=== PATIENT | male | born 1940 | race Caucasian/White ===

== ENCOUNTER → 2016-09-15 | Outpatient (CLI) | payer OTHER, MEDICARE ==
[~2016-09-15] VITALS: Ht 190.5 cm; Wt 105.4 kg
[~2016-09-15] MED LIST: ADULT LOW DOSE81 MG PO; ALDACTONE25 MG PO; ASPIRIN EC81 M1 PO; ASTELIN30 ML; B-100 COMPLEX1 EAC1 PO; B-100 COMPLEX100 MG PO; BACTRIM DS TAB1 EACH PO; BISOPROLOL FUM2.5 MG PO; BLOOD PRESSURE MED; CALCIUM PO; CELEBREX 200 M200 MG PO; CENTRUM COMPLE1 EACH PO; CENTRUM TABLET1 EACH PO; CHEST CONGESTI400 MG PO; CITRUCEL CAPLET1 TA1 PO; CITRUCEL500 MG; COLACE100 MG PO; CYMBALTA30 MG PO; CYMBALTA60 MG PO; DICLOFENAC SODI50 MG PO; ENTEX; FENTANYL PA12 MCG/H1 TOP; FENTANYL PA12 MCG/H1 TP; FENTANYL PA12 MCG/HR TP; FINACEA50 GM TOP; FISH OIL 1,001000 M2 PO; GLUCOSAMINE HC500 MG PO; GLUCOSAMINE-CH1 EA33 PO; HYDROCHLOROTHIA25 M1 PO; HYDROCODON-ACE1 EAC5 PO; HYDROCODON-ACE1 EAC7 PO; HYDROCODONE-AP1 EAC6 PO; HYLANDS LEG CRAMPS; HYZAAR 50-12.51 EACH PO; KLOR-CON 1010 MEQ; KLOR-CON 1010 MEQ PO; LASIX 40 MG TAB40 M2 PO; LIORESAL 10 MG10 MG PO; LIPITOR 10 MG10 M1 PO; LISINOPRIL2.5 MG PO; LOPRESSOR25 PO; LOPRESSOR50 PO; MIRALAX255 GM; MUCINEX1200 MG PO; MUCUS RELIEF600 MG PO; NABUMETONE 500500 M1 PO; NITROGLYCERIN0.4 MG SUBLING; PACERONE 200 M200 M1 PO; PHOSLO; PLAVIX 75 MG TA75 M1 PO; PREVACID 30MG C30 M1 PO; PROBIOTIC1 EAC1 PO; QUININE PO; RELAFEN500 MG; SIMVASTATIN40 MG PO; TUMS PO; VITAMIN D1000 UNIT PO; VITAMIN D3400 UNIT PO; VOLTAREN50 MG PO; ZYRTEC PO; ZYRTEC1 MG/1 ML; ZYRTEC10 MG PO; [UNRECOGNIZED DRUG - OTHER]
--- NOTE | ~2016-09-15 | HPC ---
[facility] [address] [place] [address] PAIN MANAGEMENT CONSULTATION Name: ELÍAS DAVIS Room #: REG [facility].#: [id number] Admission: 09/15/16 Attend Phys: Elías Cruz DO Discharge: Date of : 40 Report #: [id number] THIS REPORT FOR: //name// CC: Sabine Cruz DATE OF SERVICE: 09/15/2016 DATE OF SERVICE: 09/15/2016 CHIEF COMPLAINT: Generalized arthritic pain, low back pain. HISTORY OF PRESENT ILLNESS: As you know, patient is a 76-year-old male with longstanding history of chronic back pain issues with multiple radiofrequency lesionings of the lumbar spine to address lumbar facet arthropathy. He is beginning to experience increasing back pain for which he believes his symptoms are due to facet arthropathy. He is also complaining of generalized joint pain today. There has been a recent change in weather, which I believe is contributing to his symptoms. I believe the patient is suffering from generalized osteoarthritic changes of the major joints due to injury sustained as a younger man and age-related issues. He returns today reporting pain score to 8/10. Requesting medication management and to be scheduled to undergo radiofrequency lesioning of the medial branch nerves once again to address axial back pain issues. He has received authorization to come off his Plavix for the 7 days required. ALLERGIES: ADHESIVE TAPES AND PENICILLIN. CURRENT MEDICATIONS: For pain, fentanyl, Cymbalta and hydrocodone. SOCIAL HISTORY: The patient denies tobacco, alcohol or illicit drug use. He is retired, retired years ago, accompanied by his . PHYSICAL EXAMINATION: VITAL SIGNS: Blood pressure 110/67, pulse is 71, respiratory rate 14 and unlabored. The patient 98% on room air, height 6 feet 3 inch tall, weight 232.4 pounds, BMI calculated 29. GENERAL: Well-developed, well-nourished, well-hydrated, thin, 76-year-old male appearing his stated age. Pain is rated at around 8/10. HEENT: Normocephalic, atraumatic. Pupils equal, round, reactive to light. EXTREMITIES: Show no clubbing, no cyanosis, no edema. MUSCULOSKELETAL: Lumbar provocation testing including extension, rotation, lateral flexion all intensify axial back pains. Seated straight leg raising negative. Supine straight leg raising negative. Fabere's test negative. ASSESSMENT: [facility] [address] [place] [address] PAIN MANAGEMENT CONSULTATION Name: ELÍAS DAVIS [facility] [id number] Admission: 09/15/16 Attend Phys: Elías Cruz DO Discharge: Date of : 40 Report #: [id number] 1. Severe and progressively worsening lumbosacral spondylosis without radiculopathy. 2. Myofascial pain. 3. Generalized osteoarthritis of the major joints. 4. Chronic intractable pain. PLAN: 1. The patient was returned today in followup visit indicating that he has been cleared to come off his anticoagulant medication in preparation for radiofrequency lesioning of the lumbar spine. I have advised the patient at this time, he would need to be off the Plavix minimum of 5 days and maximum of 7 days to undergo the procedure safely. He will contact his PCP to confirm that he can come off these medications. If he is able to do so, we will schedule him back next week for radiofrequency lesioning of the medial branch nerves either right or left side in this staged procedure. The patient would need to come off the medication at 2 different times to complete the radiofrequency lesioning of the medial branch nerves of the lumbar region. 2. The patient was provided prescription of fentanyl 12 mcg patch 1 patch q. 72 hours, given #10 patches releases of today, 4 weeks from today, 8 weeks from today, 3 months worth of medication. 3. The patient was provided a prescription of Cymbalta 30 mg dose 1 tab p.o. q.a.m., #30, two refills. 4. The patient was provided prescription of hydrocodone/acetaminophen 10/325 one tab per day p.r.n. pain, #30, no refills. 5. The patient to return to our clinic once he has discontinued his Plavix in preparation for radiofrequency lesioning of either the right L3, L4, L5 medial branch nerves over the left L3, L4, L5 medial branch nerves. This was the first portion of the staged bilateral procedure. <ELECTRONICALLY SIGNED> By: Elías Cruz DO 09/28/16 0805 0830 [id number] Elías Cruz DO /nt
[2016-09-15 10:33] VITALS: BP 110/67
== END | disposition home or self-care (01) ==
LOC: PAIN 07:12
DX: M47.817 Spondylosis without myelopathy or radiculopathy, lumbosacral region (principal); M79.1 Myalgia; M19.90 Unspecified osteoarthritis, unspecified site; G89.29 Other chronic pain

== ENCOUNTER → 2017-01-05 | Outpatient (CLI) | payer OTHER, MEDICARE ==
[~2017-01-05] VITALS: Ht 193 cm; Wt 104.4 kg
--- NOTE | ~2017-01-05 | HPC ---
[facility] [place] [address] PAIN MANAGEMENT CONSULTATION Name: ELÍAS DAVIS Room #: REG [facility]..#: [id number] Admission: 01/05/17 Attend Phys: Elías Cruz DO Discharge: Date of : 40 Report #: [id number] THIS REPORT FOR: //name// CC: Sabine Cruz DATE OF SERVICE: 01/05/2017 REFERRING PHYSICIAN: MELISSA Magallanes CHIEF COMPLAINT: Low back pain. HISTORY OF PRESENT ILLNESS: As you know, the patient is a very pleasant 76-year-old male, returning in followup visit for medication management. He is placing pain score today around 6/10, states his pain begins in low back, bilateral hips, its chronic in nature, stiff in sensation, exacerbated with activities and movement, improves with medications. He has returned today in followup visit, denying new injury or new trauma that may have led to continuation of symptoms. Overall, he is doing very well from a pain standpoint, requesting refills of the medications at current dosing. ALLERGIES: ADHESIVE TAPES and PENICILLIN. CURRENT MEDICATIONS: , hydrocodone 10/325 one 1 tab p.o. q. 12 hours p.r.n. for pain, fentanyl 12 mcg 1 patch q.72 hours, and duloxetine 30 mg 1 tab p.o. at bedtime. SOCIAL HISTORY: The patient denies tobacco, alcohol, IV or illicit drug use. He is unaccompanied today. IMAGING: No new imaging available. PHYSICAL EXAMINATION: VITAL SIGNS: Blood pressure 101/67, pulse 69, and respiratory rate 14 and unlabored, the patient is 96% on room air, height 6 feet 4 inches tall, weight 230.2 pounds, BMI calculated 28. GENERAL: Well-developed, well-nourished, well-hydrated 76-year-old male, appearing stated age, placing pain score today 6/10. HEENT: Normocephalic and atraumatic. Pupils are equal, round, and reactive to light. Extraocular muscles are intact. Sclerae are nonicteric without injection. EXTREMITIES: Show no clubbing, no cyanosis, and no edema. MUSCULOSKELETAL: Lower extremity strength appears equal and symmetrical 5/5. Seated straight leg raising negative. Supine straight leg raising negative. Lumbar provocation testing including extension, rotation, and lateral flexion [address] [address] PAIN MANAGEMENT CONSULTATION Name: ELÍAS DAVIS Room #: REG CLI [facility]#: [id number] Admission: 01/05/17 Attend Phys: Elías Cruz DO Discharge: Date of : 40 Report #: [id number] intensify axial back pain. ASSESSMENT: 1. Severe and progressively worsening lumbosacral spondylosis without radicular symptoms. 2. Myofascial pain. 3. Generalized joint pain. 4. Osteoarthritis of the joints. 5. Chronic intractable pain. PLAN: 1. The patient has returned today in followup visit, reporting 75% improvement in overall pain with the radiofrequency lesioning provided at last visit. Unfortunately, the patient continues to experience axial back pain for which he needs to remain on medications. Overall, the patient states his pain is doing much better than it was at our last visit. He places his pain at the highest at 6/10. He has returned requesting refill on medication. He denies any side effects with the therapy. He is pleased with the response to the radiofrequency lesioning and wishes to continue medication therapy at this time. 2. The patient was provided a prescription of fentanyl 12 mcg patch 1 patch q.72 hours, I have given the patient #10 patches, release dates of today, 4 weeks from today, 8 weeks from today, 3 months' worth of medication. 3. The patient was provided a refill prescription on hydrocodone 10/325 one tab every 8 hours p.r.n. for pain, #30, release dates of today, 4 weeks from today, 8 weeks from today, 3 months' worth of medication. 4. The patient was provided a prescription of Cymbalta 30 mg dose 1 tab p.o. q.a.m., #30, 2 refills, 3 months' worth of medication. 5. The patient will return to our clinic on an as needed basis for possible interventional treatments, otherwise we will see him back in followup visit for medication management 3 months from today. By: [id number] Elías Cruz, /nt
[2017-01-05 10:08] VITALS: BP 101/67
== END ==
LOC: PAIN 06:49
DX: M47.817 Spondylosis without myelopathy or radiculopathy, lumbosacral region (principal); M79.1 Myalgia; M19.90 Unspecified osteoarthritis, unspecified site; I10 Essential (primary) hypertension; F10.21 Alcohol dependence, in remission; Z88.0 Allergy status to penicillin; Z88.8 Allergy status to other drugs, medicaments and biological substances

== ENCOUNTER → 2017-03-16 | Outpatient (CLI) | payer OTHER, MEDICARE ==
[~2017-03-16] VITALS: Ht 190.5 cm; Wt 107.0 kg
[~2017-03-16] MED LIST changes: +APAP500 PO
--- NOTE | ~2017-03-16 | HPC ---
[facility] [address] [place] [address] PAIN MANAGEMENT CONSULTATION Name: ELÍAS DAVIS Room #: REG [facility].#: [id number] Admission: 03/16/17 Attend Phys: Elías Cruz DO Discharge: Date of : 40 Report #: [id number] THIS REPORT FOR: //name// CC: Sabine Cruz DATE OF SERVICE: 03/16/2017 CHIEF COMPLAINT: Low back pain. HISTORY OF PRESENT ILLNESS: As you know, the patient is a pleasant 76-year-old male who returns today in followup visit with pain score of around 8/10, states his pain begins in his low back, radiates to bilateral buttock and posterolateral thighs. He indicates his pain is chronic, stiff in sensation, exacerbated with activities and movement, improves with medications and intermittent medial branch radiofrequency lesioning of the lumbar medial branch nerves. The patient returns today in followup visit indicating no change in his current therapy. He states he is doing well overall. States medications are working beneficially despite the elevated pain score of 8/10. He reports a 60% improvement in symptoms with medication management. He returns today requesting refills of all medications. ALLERGIES: ADHESIVE TAPE, PENICILLIN. CURRENT MEDICATIONS: Hydrocodone 10/325 one tab every 12 hours p.r.n. for pain, fentanyl 12 mcg q. 72 hours, duloxetine 30 mg once a day, acetaminophen 500 mg p.r.n., guaifenesin 400 mg p.r.n., omega-3 fish oil 1 tab per day, cholecalciferol 1 tab per day, furosemide 40 mg per day, metoprolol 25 mg once a day, lisinopril 2.5 mg once a day, nitroglycerin 0.4 mg p.r.n., simvastatin 40 mg per day, Plavix 75 mg per day, lactobacillus 1 tab per day, aspirin 81 mg per day, potassium chloride 10 mEq p.o. q. day, lansoprazole 30 mg per day. SOCIAL HISTORY: The patient denies tobacco, alcohol, IV or illicit drug use. He is accompanied by his who is present in room today. IMAGING: No new imaging available. PHYSICAL EXAMINATION: VITAL SIGNS: Blood pressure 110/65, pulse 66, respiratory rate 16, unlabored. The patient is 97% on room air, height 6 feet 3 inches tall, weight 236 pounds, BMI calculated 29.5. GENERAL: Well developed, well nourished, well hydrated, thin, 76-year-old male appearing stated age, placing current pain score at 8/10. HEENT: Normocephalic, atraumatic. Pupils equal, round, [place] [address] PAIN MANAGEMENT CONSULTATION Name: ELÍAS DAVIS [facility] #: [facility] [id number] Admission: 03/16/17 Attend Phys: Elías Cruz DO Discharge: Date of : 40 Report #: [id number] EXTREMITIES: Show no clubbing, no cyanosis, no edema. MUSCULOSKELETAL: Lower extremity strength equal and symmetrical 5/5, intact to light touch from L1 through S2 dermatomes. Deep tendon reflexes equal and symmetrical. Ankle clonus negative. Babinski is negative. Modified Gaenslen's positive for axial low back pain. ASSESSMENT: 1. Severe and progressively worsening lumbosacral spondylosis. There is no radiculopathy. 2. Myofascial pain. 3. Generalized joint pain. 4. Osteoarthritis of the joints. 5. Chronic intractable pain. PLAN: 1. The patient has returned today in followup visit for continuation of medication therapy. The patient states medications are working beneficially for pain control. The patient indicates pain today of a level of 8/10 despite the fact that he is reporting 60% improvement with medications. He has requested and we have agreed to provide refill of medications for the next 3 months. He is tolerating the medication well and does feel benefit with its use. 2. The patient was provided a prescription of Cymbalta 30 mg dose 1 tab p.o. at bedtime, #30, 2 refills. 3. The patient was provided a refill prescription of fentanyl 12 mcg patch 1 patch q. 72 hours, given the patient #10 patches, releases of today, 4 weeks from today, 8 weeks from today, 3 months' worth of medication. 4. The patient was provided a prescription of hydrocodone/acetaminophen 10/325 mg 1 tab p.o. q. 8 hours p.r.n. for pain, I have given the patient #30. He can take these tabs as necessary. He was given releases of today, 4 weeks from today, 8 weeks from today, 3 months' worth of medication. 5. We will see the patient back in followup visit on an as needed basis for possible interventional treatments; otherwise, we will see him back in 3 months for medication management. <ELECTRONICALLY SIGNED> By: Elías Cruz DO 03/19/17 1400 [id number] [id number] Elías Cruz DO /nt
[2017-03-16 10:59] VITALS: BP 110/65
== END | disposition home or self-care (01) ==
LOC: PAIN 07:06
DX: M47.817 Spondylosis without myelopathy or radiculopathy, lumbosacral region (principal); M79.1 Myalgia; M19.91 Primary osteoarthritis, unspecified site; G89.29 Other chronic pain

== ENCOUNTER → 2017-04-13 | Outpatient (CLI) | payer OTHER, MEDICARE ==
[~2017-04-13] VITALS: Ht 190.5 cm; Wt 106.1 kg
--- NOTE | ~2017-04-13 | HPC ---
[facility] [place] [address] [address] PAIN MANAGEMENT CONSULTATION Name: ELÍAS DAVIS Room #: REG [facility].#: [id number] Admission: 04/13/17 Attend Phys: Elías Cruz DO Discharge: Date of : 40 Report #: [id number] THIS REPORT FOR: //name// CC: Sabine Cruz DATE OF SERVICE: 04/13/2017 DATE OF SERVICE: 04/13/2017. REFERRING PHYSICIAN: MELISSA Magallanes. CHIEF COMPLAINT: Low back pain, bilateral lower extremity pain with weakness. HISTORY OF PRESENT ILLNESS: As you know, the patient is a 76-year-old male who returns today in followup visit with increasing back pain, bilateral lower extremity weakness. He indicates pain level 7/10. Pain is electrical in sensation radiating down the legs, exacerbated with movement, improves with medications and chiropractic manipulation. The patient returns today in followup visit to discuss options for treatment. He is now reporting bilateral weakness that has led to stumbling, but no specific falls. He returns to discuss options for treatment. ALLERGIES: ADHESIVE TAPE AND PENICILLIN. CURRENT MEDICATIONS: See extensive list in chart. SOCIAL HISTORY: The patient denies tobacco, alcohol, IV or illicit drug use. He is retired. He is accompanied by his in the room today. IMAGING: No new imaging available. PHYSICAL EXAMINATION: VITAL SIGNS: Blood pressure 116/70, pulse 66, respiratory rate 16, unlabored. The patient is 96% on room air, height 6 feet 3 inches tall, weight 234 pounds, BMI calculated 29.2. GENERAL: Well developed, well nourished, well hydrated, thin, 76-year-old male appearing his stated age, placing current pain score 7/10. HEENT: Normocephalic, atraumatic. Pupils equal, round, reactive to light. Extraocular muscles are intact. EXTREMITIES: Show no clubbing, no cyanosis, no edema. MUSCULOSKELETAL: Lower extremity strength is symmetrical and would be rated at 5/5. He is intact to light touch from L1 through S2 dermatomes. Deep tendon reflexes are symmetrical at patella and Achilles, but are diminished. Ankle clonus negative. Babinski is negative. Gait is antalg[place] [address] PAIN MANAGEMENT CONSULTATION Name: ELÍAS DAVIS Room #: REG [facility]#: [id number] Admission: 04/13/17 Attend Phys: Elías Cruz DO Discharge: Date of : 40 Report #: [id number] lumbar spine while standing. ASSESSMENT: 1. Severe and progressively worsening lumbosacral spondylosis with radiculopathy. 2. Lumbar radiculopathy. 3. Generalized joint pain. 4. Osteoarthritis. 5. Chronic intractable pain. PLAN: 1. The patient has returned today in followup visit indicating increasing weakness in the lower extremities. He has a begun to stumble but he is not falling. He believes that this weakness has progressed. The patient indicates that many times in the day, he has to lift his leg by his pant leg, both on the right and left side. The patient returns with increasing pain and weakness in the lower extremities, which is concerning for central canal stenosis. The patient and I did discuss today that further evaluation will be necessary to determine course of treatment. He has undergone radiofrequency lesioning, epidural injections, medication management, all of which have been somewhat helpful in alleviating symptoms on progressive basis, but with increasing weakness, I am concerned of central canal stenosis that may need surgical intervention. We recommend MRI lumbar spine. 2. The patient will undergo MRI of lumbar spine without contrast to be sent for the MRI as quickly as possible, review the findings once they are available and discuss the options for treatment including surgical options. 3. No medication changes were made at today's visit. The patient has medication available, does not need refills on his therapy at this time. 4. We will see the patient back in followup visit once he has undergone his MRI of the lumbar spine. Once this is completed, the patient will return and will review the findings and discuss options for treatment. By: [id number] Elías Cruz DO /nt
[2017-04-13 10:06] VITALS: BP 116/70
== END | disposition home or self-care (01) ==
LOC: PAIN 07:16
DX: M54.16 Radiculopathy, lumbar region (principal); M47.27 Other spondylosis with radiculopathy, lumbosacral region; M19.90 Unspecified osteoarthritis, unspecified site; G89.29 Other chronic pain; Z88.0 Allergy status to penicillin; Z88.8 Allergy status to other drugs, medicaments and biological substances

== ENCOUNTER → 2017-04-15 | Outpatient (CLI) | payer OTHER, MEDICARE | LOC: MRI 08:08 | DX: M54.5 Low back pain (principal) ==

== ENCOUNTER → 2017-04-20 | Outpatient (CLI) | payer OTHER, MEDICARE ==
[~2017-04-20] VITALS: Ht 190.5 cm; Wt 107.3 kg
--- NOTE | ~2017-04-20 | HPC ---
[facility] [place] [address] PAIN MANAGEMENT CONSULTATION Name: ELÍAS DAVIS [facility] [id number] Admission: 04/20/17 Attend Phys: Elías Cruz DO Discharge: Date of : 40 Report #: [id number] THIS REPORT FOR: //name// CC: Sabine Cruz DATE OF SERVICE: 04/20/2017 REFERRING PHYSICIAN: MELISSA Magallanes. CHIEF COMPLAINT: Low back pain, bilateral lower extremity pain and weakness. HISTORY OF PRESENT ILLNESS: As you know, the patient is a 76-year-old male who returns today in followup visit who was reporting last week increasing back pain, bilateral lower extremity pain and weakness. At that time, he was placing pain score 7/10. Due to increasing back pain issues and weakness, the patient was sent for MRI. He returns today to review MRI and has stopped his Plavix in preparation for an epidural injection. He returns today stating the weakness has resolved from his lower extremities. He is now experiencing axial back pain, buttock and posterolateral thigh pain. He returns to discuss options for treatment. He has stopped his Plavix in preparation for an epidural injection if this is appropriate. ALLERGIES: TAPE AND PENICILLIN. CURRENT MEDICATIONS: See extensive list in chart. SOCIAL HISTORY: The patient denies tobacco, alcohol, IV or illicit drug use. He is retired, retired years ago, accompanied by his . IMAGING: MRI lumbar spine obtained on 04/15/2017 shows development of mild bulge at L1-L2 associated with moderate Schmorl's node involving inferior endplate of L1 which was not present in the previous examination, extensive surgical changes with disk bulge and mild subluxations do not appear changed from previous evaluations. PHYSICAL EXAMINATION: VITAL SIGNS: Blood pressure 113/65, pulse 68, respiratory rate 14, unlabored. The patient is 96% on room air. Height 6 feet 3 inches tall, weight 236.6 pounds, BMI calculated 29.6. GENERAL: Well developed, well nourished, well-hydrated 76-year-old male appearing stated age. Pain is rated at 7/10. HEENT: Normocephalic, atraumatic. Pupils equal, round, reactive to light. EXTREMITIES: Show no clubbing, no cyanosis and no edema. MUSCULOSKELETAL: Seated straight leg raising negative. Supine straight leg [facility] [address] [place] [address] PAIN MANAGEMENT CONSULTATION Name: ELÍAS DAVIS [facility] [id number] Admission: 04/20/17 Attend Phys: Elías Cruz DO Discharge: Date of : 40 Report #: [id number] raising positive. Kathy's test negative. Modified Gaenslen's positive for axial low back pain. ASSESSMENT: 1. Lumbar radiculopathy. 2. Severe and progressively worsening lumbosacral spondylosis with radicular symptoms. 3. Lumbar degeneration. 4. Opioid dependency. 5. Osteoarthritis. 6. Chronic intractable pain. PLAN: 1. The patient returns today in followup visit where we have reviewed his MRI. I am pleased to tell the patient today that there are no major changes in his lumbar region. He appears to be fairly stable except for the Schmorl's node noted at L1, but this is not the source of the patient's pain. The patient and I discussed the possibility of exacerbation of symptoms that were more myofascial in origin. This does appear to be the case as the "weakness." The patient was experiencing in lower extremities has resolved. We did not notice any physical weakness, it appears to be more of a perceived weakness at our last visit. I am pleased to indicate this has improved as well. The patient has returned today in followup visit with continued lumbar radicular symptoms, he is requesting an epidural injection to be performed today. The patient was advised risks and benefits of a lumbar epidural injection. These risks include but are not necessarily limited to bleeding, bruising, infection, worsening pain, no relief of pain, also risk of temporary or permanent muscle weakness, temporary or permanent nerve damage, possible paralysis and . The patient states understood and wished to proceed. 2. The patient was provided no change to his medication therapy. He is to continue current medical therapy as previously prescribed. 3. The patient to return to our clinic on an as-needed basis for next in a series of epidural injections and discuss other treatment options. <ELECTRONICALLY SIGNED> By: Elías Cruz DO 04/27/17 0714 1359 1822 Elías Cruz DO /nt
--- NOTE | ~2017-04-20 | P ---
[facility] [place] [address] PROCEDURE REPORT Name: ELÍAS DAVIS Room #: REG [facility].#: [id number] Admission: 04/20/17 Attend Phys: Elías Cruz DO Discharge: Date of : 40 Report #: [id number] THIS REPORT FOR: //name// CC: Sabine Cruz DATE OF SERVICE: 04/20/2017 DESCRIPTION OF PROCEDURE: L5-S1 interlaminar epidural steroid injection under fluoroscopic guidance. After obtaining written consent, the patient was taken back to fluoroscopy suite, placed in prone position with pillow under abdomen to decrease lumbar lordosis. Skin overlying lumbosacral area prepped and draped in aseptic fashion. Lumbar intervertebral spaces were identified by AP fluoroscopy. Skin and subcutaneous tissue overlying the target site of injection was anesthetized with 3 mL of 1% lidocaine. A 20-gauge 3-1/2 inch Tuohy needle advanced under fluoroscopic guidance towards the epidural space using a midline approach. Epidural space identified using loss of resistance to air technique. After negative aspiration for heme or cerebrospinal fluid, 1 mL of Omnipaque was injected. Lumbar epidurogram was confirmed using both AP and lateral fluoroscopy. After negative aspiration for heme or cerebrospinal fluid, 5 mL of a solution containing 2 mL 40 mg per mL, 80 mg total triamcinolone, 3 mL lidocaine 1% injected slowly. Needle retracted senior care, needle tract flushed 3 mL 1% lidocaine. Needle then removed. Sterile bandage placed over injection site. No new motor deficits present in lower extremity following the procedure. The patient tolerated procedure well, carefully escorted to the recovery in stable condition. No apparent complications. After meeting discharge criteria, the patient discharged home. <ELECTRONICALLY SIGNED> By: Elías Cruz DO 04/27/17 0714 1359 1823 Elías Cruz DO /nt
[2017-04-20 09:15] VITALS: BP 113/65
== END ==
LOC: PAIN 07:08
DX: M47.26 Other spondylosis with radiculopathy, lumbar region (principal); F11.20 Opioid dependence, uncomplicated; M19.90 Unspecified osteoarthritis, unspecified site; G89.29 Other chronic pain; Z88.0 Allergy status to penicillin; Z79.899 Other long term (current) drug therapy; Z91.09 Other allergy status, other than to drugs and biological substances

== ENCOUNTER → 2017-09-14 | Outpatient (CLI) | payer OTHER, MEDICARE ==
[~2017-09-14] VITALS: Ht 190.5 cm; Wt 108.8 kg
[~2017-09-14] MED LIST changes: +DIGOXIN125 MCG PO; +DURAGESIC1 EACH TRANSDERM
--- NOTE | ~2017-09-14 | HPC ---
[facility] [address] [place] [address] PAIN MANAGEMENT CONSULTATION Name: ELÍAS DAVIS Room #: REG [facility] M..#: [id number] Admission: 09/14/17 Attend Phys: Elías Cruz DO Discharge: Date of : 40 Report #: [id number] THIS REPORT FOR: //name// CC: Sabine Cruz DATE OF SERVICE: 09/14/2017 CHIEF COMPLAINT: Low back pain, bilateral extremity pain and paresthesias. HISTORY OF PRESENT ILLNESS: As you know, the patient is a 77-year-old male with longstanding history of low back pain for which he has been treated with radiofrequency lesioning and medication management to address axial back pain issues. The patient continues to experience increasing back pain, lower extremity weakness, which is believed to be due to progressively worsening spinal stenosis. He returns today in followup visit requesting refill on medications. He states medications are working beneficially despite the fact that he is giving in 8/10 pain score today. He states his pain is chronic in nature, sore and aching in sensation and develops low back, bilateral buttock radiating all the way down to the feet. He returns today in followup visit stating no changes in medical history since our last visit. No injury, no trauma that led to progression of pain. ALLERGIES: TAPE AND PENICILLIN. CURRENT MEDICATIONS: Duloxetine 30 mg once a day, hydrocodone/acetaminophen 10/325 one tab p.o. every day, fentanyl 12 mcg q.72 hours, docusate sodium 100 mg twice a day, calcium carbonate 500 mg once a day, guaifenesin 400 mg once a day, omega-3 fish oil 1 tab per day, furosemide 40 mg per day, metoprolol 25 mg once a day, lisinopril 2.5 mg once a day, nitroglycerin 0.4 mg p.r.n., simvastatin 40 mg per day, Plavix 75 mg once a day, lactobacillus 1 tab per day, aspirin 81 mg per day, potassium chloride 10 mEq p.o. every day, Prevacid 30 mg per day. SOCIAL HISTORY: The patient denies tobacco, alcohol, IV or illicit drug use. He is retired, retired years ago, accompanied by his who is present in room today. IMAGING: No new imaging available. History of osteoarthritis, positive for osteoarthritis. Fall risk: The patient is not deemed a fall risk. If he needs, he can utilize [place] [address] PAIN MANAGEMENT CONSULTATION Name: ELÍAS DAVIS Room #: REG [facility]#: [id number] Admission: 09/14/17 Attend Phys: Elías Cruz DO Discharge: Date of : 40 Report #: [id number] History of hypertension: Yes. Opioid therapy greater than 6-week: Yes with opioid contract signed 03/25/2016. Opioid risk tool low, 08/25. Functional assessment tool 40/70. PHYSICAL EXAMINATION: VITAL SIGNS: Blood pressure 118/64, pulse 70, respiratory rate 14, unlabored. The patient 99% on room air, height 6 feet 3 inch tall, weight 239.8 pounds, BMI calculated 30. GENERAL: Well-developed, well-nourished, well-hydrated 77-year-old male. He appears his stated age. He is placing current pain score at 8/10. HEENT: Normocephalic, atraumatic. Pupils equal, round, reactive to light. Extraocular muscles are intact. EXTREMITIES: Show no clubbing, no cyanosis, no edema. MUSCULOSKELETAL: Seated straight leg raising negative. Supine straight leg raising mildly positive bilaterally. Kathy's test negative. Modified Gaenslen's positive for axial low back pain. Ankle clonus negative. Babinski is negative. He is intact to light touch from L1 through S2 dermatomes. ASSESSMENT: 1. Chronic lumbar radiculopathy. 2. Lumbosacral spondylosis with radiculopathy. 3. Lumbar degeneration. 4. Opioid dependency. 5. Osteoarthritis. 6. Chronic intractable pain. PLAN: 1. The patient returns today in followup visit where we have discussed the efficacy of medication. The patient states good efficacy with therapy despite the fact he is providing an 8/10 pain level today. I recommend continuation of the current pain medications and at current levels as the patient does note good benefit. He is able to go about his activities of daily living without significant pain interference. At present, I do not feel the patient is in need for further evaluation from Neurosurgery though he ultimately may need to have a surgical intervention. At this point, I would recommend continuation of conservative treatment as he is tolerating the medication without side effects. 2. The patient was provided prescription of fentanyl 12 mcg patch 1 patch q.72 hours, given the patient #10 patches, releases of today, 4 weeks from today, 8 weeks from today, 3 months' worth of medication. 3. The patient was provided a prescription of [place] 10/325, 1 tab per day, #30 with releases of today, 4 weeks from today, 8 weeks from today. 4. We will continue the patient on Cymbalta 30 mg dose, 1 tab p.o. every day, #30, 2 refills. 5. The patient and I did discuss the possibility of making alteration in his [facility] [address] [place] [address] PAIN MANAGEMENT CONSULTATION Name: ELÍAS DAVIS Room #: REG [facility] Bernadine#: [id number] Admission: 09/14/17 Attend Phys: Elías Cruz DO Discharge: Date of : 40 Report #: [id number] medication for better pain control. During the daytime hours, he has hydrocodone 5/325 available to him and has a significant amount at home. He could utilize this for pain control. We did discuss the possibility of starting the patient on nonsteroidal anti-inflammatories per his request, but I did advise him that these are contraindicated with the use of Plavix. There is a strong possibility that the patient could have increased bleeding risk with the Plavix concurrent with nonsteroidal anti-inflammatories. Recommend the use of the hydrocodone as tramadol has been ineffective. He does not need a refill on that and had hydrocodone at the 5/325 level. 6. We will see the patient back in followup visit in 3 months for medical therapy earlier if adjustments need to be addressed. <ELECTRONICALLY SIGNED> By: Elías Cruz DO 09/22/17 [id number] Elías Cruz DO /nt
[2017-09-14 11:18] VITALS: BP 118/64
== END ==
LOC: PAIN 06:54
DX: M47.27 Other spondylosis with radiculopathy, lumbosacral region (principal); F11.20 Opioid dependence, uncomplicated; M19.90 Unspecified osteoarthritis, unspecified site; Z88.0 Allergy status to penicillin

== ENCOUNTER → 2017-12-28 | Outpatient (CLI) | payer OTHER, MEDICARE ==
[~2017-12-28] VITALS: Ht 190.5 cm; Wt 107.0 kg
[~2017-12-28] MED LIST changes: -DIGOXIN125 MCG PO
--- NOTE | ~2017-12-28 | HPC ---
[facility] [place] [address] PAIN MANAGEMENT CONSULTATION Name: ELÍAS DAVIS Room #: REG [facility].#: [id number] Admission: 12/28/17 Attend Phys: Elías Cruz DO Discharge: Date of : 40 Report #: [id number] THIS REPORT FOR: //name// CC: MARIBELL Cruz DATE OF SERVICE: 12/28/2017 CHIEF COMPLAINT: Low back pain, bilateral lower extremity pain with paresthesias. HISTORY OF PRESENT ILLNESS: As you know, the patient is a 77-year-old male with longstanding history of low back pain for which he is treated with radiofrequency lesioning, medication management to address axial back pain. He continues to experience axial back pain, which he rates pain today at 7/10. He returns today requesting refill on medications. He feels medications are working beneficially despite this elevated pain level. He remains on Plavix, which precludes us from continuing nonsteroidal anti-inflammatories for which he found the greatest efficacy. He returns citing no new injury, no new trauma or any changes in medical history since our last visit. ALLERGIES: TAPE AND PENICILLIN. CURRENT MEDICATIONS: Duloxetine 30 mg once a day, hydrocodone/acetaminophen 10/325 one tab p.o. at bedtime, fentanyl 12 mcg q. 72 hours, docusate sodium 100 mg once a day, calcium carbonate 500 mg per day, guaifenesin 400 mg once a day, omega-3 fish oil 1 tab per day, cholecalciferol 4000 units once a day, furosemide 40 mg per day, metoprolol 25 mg once a day, lisinopril 2.5 mg once a day, nitroglycerin 0.4 mg p.r.n. chest pain, simvastatin 40 mg once a day, Plavix 75 mg once a day, Lactobacillus 1 tab per day, aspirin 81 mg per day, potassium chloride 10 mEq p.o. q. day, lansoprazole 30 mg per day. SOCIAL HISTORY: The patient denies tobacco, alcohol, IV or illicit drug use. He is retired, retired years ago. He is unaccompanied today. IMAGING: No new imaging available. PQRS, the patient has known osteoarthritis. No rheumatoid arthritis. He is not a fall risk, has not had a fall in the last 3 months. He does not have any ambulatory devices. He is currently treated for hypertension and is on an anticoagulant. He has been on opioids greater than 6 weeks and is under contract with [facility]. His risk assessment for opioid abuse is low. Functional assessment/pain tool 42/70 indicating moderate to severe interference of daily activities secondary to pain. [address] [address] PAIN MANAGEMENT CONSULTATION Name: ELÍAS DAVIS Room #: REG [facility]#: [id number] Admission: 12/28/17 Attend Phys: Elías Cruz DO Discharge: Date of : 40 Report #: [id number] PHYSICAL EXAMINATION: VITAL SIGNS: Blood pressure 117/70, pulse 70, respiratory rate 14, unlabored. The patient is 96% on room air, height 6 feet 3 inch tall, weight 236 pounds, BMI calculated at 29.5. GENERAL: Well-developed, well-nourished, well-hydrated 77-year-old male appearing stated age, placing pain score today at 7/10. HEENT: Normocephalic, atraumatic. Pupils equal, round, reactive to light. Extraocular muscles are intact. EXTREMITIES: Show no clubbing, no cyanosis, no edema. MUSCULOSKELETAL: Muscle bulk and tone equal and symmetrical in lower extremities. He remains intact to light touch from L1 through S2 dermatomes. Seated straight leg raising negative. Supine straight leg raising mildly positive. KYLE test negative. Modified Gaenslen's positive for axial low back pain. Lumbar provocation testing including extension, rotation, lateral flexion all intensify axial back pain. ASSESSMENT: 1. Symptomatic lumbar radiculopathy. 2. Lumbosacral spondylosis with radicular symptoms. 3. Lumbar degeneration. 4. Opioid dependency. 5. Osteoarthritis. 6. Chronic intractable pain. PLAN: 1. The patient returns today in followup visit. We have discussed at length his elevated pain score. He is now placing pain score at 7/10. This is not atypical for this patient as his pain does intensify with activities. He returns to discuss possible changes in medication therapy. We have suggested possibly increase in his fentanyl, but a decrease in his use of hydrocodone At this point, the patient does not feel he wishes to change. He wishes to continue the therapy at this point and trial conservative treatment options at home including stretching exercises and traction like techniques. We applaud the patient for trying more conservative approach, but will be available if adjustments need to be made. He has requested refills of medication at current dosing for the next 3 months. 2. The patient was provided a prescription of fentanyl 12 mcg patch 1 patch q. 72 hours. We have given the patient #10 patches. He will have releases of today, 4 weeks from today, 8 weeks from today, 3 months' worth of medication. 3. The patient was provided prescription of [place] 10/325 one tablet p.o. at bedtime, #30 releases of today, 4 weeks from today, 8 weeks from today. This is to be used specifically for breakthrough pain, is not to rely on prophylactically. 4. The patient was provided prescription of Cymbalta 30 mg dose 1 tab p.o. q.a.m., #32 refills. This has been added for depression and to help with axial [facility] [address] [place] [address] PAIN MANAGEMENT CONSULTATION Name: ELÍAS DAVIS Room #: REG [facility]#: [id number] Admission: 12/28/17 Attend Phys: Elías Cruz DO Discharge: Date of : 40 Report #: [id number] back pain and neuropathic pain. 5. The patient will return to our clinic in 3 months. At that time, we will discuss medications again and discuss if any other changes need to be made. By: 1601 2036 Elías Cruz DO /nt
[2017-12-28 11:54] VITALS: BP 117/70
== END ==
LOC: PAIN 06:19
DX: M47.27 Other spondylosis with radiculopathy, lumbosacral region (principal); M19.90 Unspecified osteoarthritis, unspecified site; F11.20 Opioid dependence, uncomplicated

== ENCOUNTER → 2018-03-09 | Outpatient (CLI) | payer OTHER, MEDICARE ==
[~2018-03-09] VITALS: Ht 190.5 cm; Wt 108.0 kg
[~2018-03-09] MED LIST changes: +DIGOXIN125 MCG PO
--- NOTE | ~2018-03-09 | HPC ---
[facility] [address] [place] [address] PAIN MANAGEMENT CONSULTATION Name: ELÍAS DAVIS Room #: REG [facility].#: [id number] Admission: 03/09/18 Attend Phys: Elías Cruz DO Discharge: Date of : 40 Report #: [id number] THIS REPORT FOR: //name// CC: MARIBELL Cruz DATE OF SERVICE: 03/09/2018 CHIEF COMPLAINT: Low back pain, bilateral lower extremity pain with paresthesias. HISTORY OF PRESENT ILLNESS: As you know, the patient is a 77-year-old male with longstanding history of low back pain, which has been treated with radiofrequency lesioning, medication management to address axial back pain issues due to facet arthropathy. He continues to experience back pain that now is radiating down the legs described as progressively worsening spinal stenosis. He returns today in followup visit reporting pain score 7/10, states his pain begins in low back, radiates down the legs all the way to the feet. He describes the pain as chronic aching, numbness and tingling. Places current pain score at 7/10. Pain is exacerbated with activity, lying down and sleeping, improves with medications and intermittent injections. He returns today in followup visit for medication management describing no side effects. ALLERGIES: TAPE, PENICILLIN. CURRENT MEDICATIONS: Duloxetine 30 mg once a day, hydrocodone 10/325 one tab every day, fentanyl 12 mcg q. 72 hours, docusate sodium 100 mg twice a day, calcium carbonate 500 mg once a day, guaifenesin 400 mg once a day, omega-3 fish oil 1 tab per day, furosemide 40 mg per day, metoprolol 25 mg per day, lisinopril 2.5 mg once a day, nitroglycerin 0.4 mg p.r.n., simvastatin 40 mg per day, Plavix 75 mg per day, Lactobacillus 1 tab per day, aspirin 81 mg per day, potassium chloride 10 mEq p.o. every day, Prevacid 30 mg per day. SOCIAL HISTORY: The patient denies tobacco, alcohol, IV or illicit drug use. He is retired, retired years ago. He is unaccompanied today. IMAGING: No new imaging available. PQRS: The patient has osteoarthritis of the back, neck, bilateral hips, bilateral knees. He is not diagnosed with rheumatoid arthritis. He is not a fall risk, has not had a fall in the last 3 months. He is treated for hypertension and is on blood thinners. He has been on opioids for greater than 6 weeks. He is low risk for opioid dependency. His functional assessment pain [address] [address] PAIN MANAGEMENT CONSULTATION Name: ELÍAS DAVIS [id number] Admission: 03/09/18 Attend Phys: Elías Cruz DO Discharge: Date of : 40 Report #: [id number] impact score 42/70, severe. PHYSICAL EXAMINATION: VITAL SIGNS: Blood pressure 121/77, pulse 70, respiratory rate 14 and unlabored. The patient is 97% on room air. Height 6 feet 3 inches tall, weight 238 pounds, BMI calculated at 29.7. GENERAL: Well-developed, well-nourished, well-hydrated 77-year-old male appearing stated age, placing current pain score at approximately 7/10. HEENT: Normocephalic, atraumatic. Pupils equal, round, reactive to light. EXTREMITIES: Show no clubbing, no cyanosis, no edema. MUSCULOSKELETAL: Lower extremity strength symmetrical 5/5, intact to light touch from L1 through S2 dermatomes. Seated straight leg raising negative. Supine straight leg raising positive. Kathy's test negative. Modified Gaenslen's positive for axial back pain. Ankle clonus negative. ASSESSMENT: 1. Chronic lumbar radiculopathy. 2. Lumbosacral spondylosis with radicular symptoms. 3. Lumbar degeneration. 4. Opioid dependency. 5. Complex medical therapy utilizing scheduled medications. 6. Osteoarthritis. 7. Chronic intractable pain. PLAN: 1. We reviewed the fact that opiate medications are being used to provide analgesia adequate to support activities of daily living, not attempting to achieve a specific pain score on the 0-10 Visual Analog Scale. The current opiate medications are providing sufficient analgesia to allow the patient to participate in activities of daily living. The patient is not exhibiting any aberrant behavior suggestive of drug diversion. The patient is not having any adverse reactions to medications. The patient is not suffering from daytime somnolence or mental acuity changes. The patient is managing opiate-induced constipation with appropriate [id number] agents and dietary considerations. The patient was counseled on concern for caution with operating a motor vehicle while using opiate medications. A physical exam was performed and the patient's functional status was evaluated. All patients with back pain were advised against the bed rest greater than 4 days and were advised to return to normal activities. Pain score assessment was noted and the treatment plan was reviewed with the patient. All current medications, both prescribed and OTC were reviewed and reconciled on the electronic medical record. Tobacco screening was accomplished and smoking cessation was advised when indicated. BMI was noted and diet/exercise modification was recommended for all patients following outside normal parameters. I reviewed with the patient today their responsibilities to safeguard [address] [place] [address] PAIN MANAGEMENT CONSULTATION Name: ELÍAS DAVIS Room #: REG [facility].#: [id number] Admission: 03/09/18 Attend Phys: Elías Cruz DO Discharge: Date of : 40 Report #: [id number] prescription medications, reviewed their responsibility to utilize medications only as prescribed by the physician. They are to seek and receive pain medications only from 1 physician group ( [facility]). They are to use 1 pharmacy and keep the clinic informed if they change pharmacies. Their responsibilities include making followup visits in a timely fashion and to avoid abrupt discontinuation of medication usage. Their responsibilities further include bringing their medications (bottles from the pharmacy with residual pills) to the visit for possible confirmation of pill counts and the patient understands it is their responsibility to submit to random drug screens to ensure both that the medications prescribed are present, and that no other controlled substances are present. All prescriptions provided today were generated electronically. 2. The patient returns today in followup visit for medication management, feels medications are working beneficially for pain control. He requests refills of his hydrocodone, fentanyl and Cymbalta. The following prescriptions were provided. The patient with refills for 3 months. 3. The patient was provided prescription of Cymbalta 30 mg dose 1 tab p.o. every day, #30, 2 refills. The patient denies side effects with medication. Recommend continuing this therapy. 4. The patient was provided prescription of fentanyl 12 mcg patch 1 patch q. 72 hours, #10 releases of today, 4 weeks from today, 8 weeks from today, 3 months' worth of medication. 6. The patient was provided prescription of [place] 10/325 1 tab p.o. b.i.d. p.r.n. #30, releases of today, 4 weeks from today, 8 weeks from today. 7. The patient was provided a prescription of [place] 5/325 one tab p.o. q. 8 hours p.r.n. for pain, #90 with no refills. The patient was advised to utilize the hydrocodone 5/325 only when pain is intolerable during the daytime hours. 8. We will see the patient back in followup visit in 3 months for medication therapy, earlier for adjustments in treatment options or interventional treatments. By: [id number] Elías Cruz DO /nt
[2018-03-09 11:03] VITALS: BP 121/77
== END ==
LOC: PAIN 06:09
DX: M47.27 Other spondylosis with radiculopathy, lumbosacral region (principal); M51.16 Intervertebral disc disorders with radiculopathy, lumbar region; G89.4 Chronic pain syndrome; F11.20 Opioid dependence, uncomplicated; Z79.899 Other long term (current) drug therapy

== ENCOUNTER → 2018-07-06 | Outpatient (CLI) | payer OTHER, MEDICARE ==
[~2018-07-06] MED LIST changes: +ELIQUIS5 MG PO
--- NOTE | ~2018-07-06 | HPC ---
[facility] [place] [address] PAIN MANAGEMENT CONSULTATION Name: ELÍAS DAVIS [id number] Admission: 07/06/18 Attend Phys: Emerita Cordero Discharge: Date of : 40 Report #: [id number] THIS REPORT FOR: //name// CC: Emerita TORRES DATE OF SERVICE: 07/06/2018 CHIEF COMPLAINT: Low back pain via lateral lower extremity pain with paresthesias. HISTORY OF PRESENT ILLNESS: This is a 78-year-old gentleman who has a longstanding history of low back pain with radicular symptoms. He has been treated with numerous injections, but continues to have pain in his lower back that is managed with his prescriptions of fentanyl 12 mcg patches and hydrocodone. The patient tells me today, his pain is 6/10, mostly over his low back, buttocks and hips. He tells me it is worse when he is standing, doing activity or lying down when he is asleep. The medications are very helpful. He tells me he does not have any problems with constipation or daytime sleepiness. He does manage his constipation with some medicines [id number]. The patient tells me that he was unable to fill a prescription by Dr. Elías Cruz last month for hydrocodone 5 mg tablets because the pharmacist would not fill to short acting medications. The patient still has that prescription in his possession at this visit. He returns today for followup of his other medicines. ALLERGIES: TAPE AND PENICILLIN. CURRENT LIST OF MEDICATIONS: Amiodarone 200 mg daily, Eliquis 5 mg twice a day, hydrocodone 10/325 once a day, fentanyl patch 12 mcg every 72 hours, Cymbalta 30 mg once a day, Colace twice a day, Tums daily, guaifenesin, fish oil, vitamin D3, Lasix 40 mg daily, nitro as needed, Zocor 40 mg once a day, probiotic daily, aspirin 81 mg, potassium 20 mEq daily and Prevacid 30 mg daily. PQRS: The patient has a history of osteoarthritis in his back, neck, bilateral hips and bilateral knees. He does not have a diagnosis of rheumatoid arthritis. His height is 6 feet 3 inches, weight is 238. I do not have his vital signs. Pain intensity score 6/10. Fall risk. Denies dizziness, does not need help walking or standing. Has not fallen in the last 3 months. He is on blood thinner of Eliquis. He has a history of hypertension. Opioid therapy is greater than 6 months; therefore, an opioid signed contract is on the chart. His risk assessment tool is low and his functional assessment is 42/70. His recreational drug use, he denies. He does not smoke tobacco and does not use alcohol currently, but has in the past. His blood pressure was 122/80, pulse was 72, respirations 14, and oxygen sat was 98%. [address] [address] PAIN MANAGEMENT CONSULTATION Name: RYANELÍAS Room #: REG [facility] Colindres#: [id number] Admission: 07/06/18 Attend Phys: Emerita Cordero Discharge: Date of : 40 Report #: [id number] [place] and [place] drug monitoring systems were checked. He is filling his medicine in [place] at appropriate intervals from Dr. Elías Cruz. He is not using multiple pharmacies. Next visit, we will check a drug screen. I do not see one recently done on the chart. The patient tells me he does safeguard his medicines. PHYSICAL EXAMINATION: GENERAL: This is a well-developed, well-nourished, well-hydrated 78-year-old male that appears his stated age, placing his pain score at 6/10 today. HEENT: Normocephalic, atraumatic. Pupils equal, round and reactive to light. EXTREMITIES: No clubbing, no cyanosis, no edema present. MUSCULOSKELETAL: Lower strength appears to be equal at 5/5. Seated position to standing without difficulty and not needing to use the armrests. Seated straight leg raising is negative. IMPRESSION: 1. Chronic lumbar radiculopathy. 2. Lumbosacral spondylosis with radicular symptoms. 3. Lumbar degeneration. 4. Opioid dependency. 5. Complex medical therapy utilizing scheduled medications. 6. Osteoarthritis. 7. Chronic intractable pain. We reviewed the fact that opiate medications are being used to provide analgesia adequate to support activities of daily living, not attempting to achieve a specific pain score on the 0-10 Visual Analog Scale. The current opiate medications are providing sufficient analgesia to allow the patient to participate in activities of daily living. The patient is not exhibiting any aberrant behavior suggestive of drug diversion. The patient is not having any adverse reactions to medications. The patient is not suffering from daytime somnolence or mental acuity changes. The patient is managing opiate-induced constipation with appropriate yzxr-rgy-elxgjuu agents and dietary considerations. The patient was counseled on concern for caution with operating a motor vehicle while using opiate medications. A physical exam was performed and the patient's functional status was evaluated. All patients with back pain were advised against the bed rest greater than 4 days and were advised to return to normal activities. Pain score assessment was noted and the treatment plan was reviewed with the patient. All current medications, both prescribed and OTC were reviewed and reconciled on the electronic medical record. Tobacco screening was accomplished and smoking cessation was advised when indicated. BMI was noted and diet/exercise modification was recommended for all patients following outside normal parameters. [facility] [address] [place] [address] PAIN MANAGEMENT CONSULTATION Name: ELÍAS DAVIS Room #: [facility]..#: [id number] Admission: 07/06/18 Attend Phys: Emerita Cordero Discharge: Date of : 40 Report #: [id number] I reviewed with the patient today their responsibilities to safeguard prescription medications, reviewed their responsibility to utilize medications only as prescribed by the physician. They are to seek and receive pain medications only from 1 physician group ( [facility]). They are to use 1 pharmacy and keep the clinic informed if they change pharmacies. Their responsibilities include making followup visits in a timely fashion and to avoid abrupt discontinuation of medication usage. Their responsibilities further include bringing their medications (bottles from the pharmacy with residual pills) to the visit for possible confirmation of pill counts and the patient understands it is their responsibility to submit to random drug screens to ensure both that the medications prescribed are present, and that no other controlled substances are present. All prescriptions provided today were generated electronically. PLAN: 1. The patient is here for renewal of his medications. He tells me that the pharmacist would not fill his short-acting hydrocodone 5/[address] Elías Cruz last month because he was already taking another short-acting hydrocodone 10/325 on top of his fentanyl patches. The patient was hopeful to be taking that medication to aid with his sleep at night. Dr. Cruz was agreeable with that, but the patient does have that script in his possession since it was not filled. 2. We discussed in depth greater than 20 minutes how he could take the medication and get it filled per his pharmacy. I had suggested to take 10 mg 1.5 at bedtime. The patient does not want to break his pills. He says he has not had luck with that in the past. We discussed writing 10 mg 1 tablet a day for 3 months and 5 mg 1 tablet a day for 3 months that would require 2 co-pays for the patient. In the end, it was decided that the patient will be given a prescription of hydrocodone 5/325, quantity 90 with refills for today, 4 week and 8 week, the patient may take all 3 at bedtime, but if he does not need that amount at bedtime, he can take fewer. His Tylenol will be slightly increased by doing this and the patient was made aware of this. 3. Fentanyl 12 mcg patch every 72 hours, #10 was given for today, 4 week and 8 week release. 4. The patient is agreeable with this plan of care, will be seen in followup again in 3 months, Cymbalta 30 mg 1 p.o. q. day, #30 with 2 additional refills were also given today. 5. Follow up in collaboration with Dr. Elías Cruz today. <ELECTRONICALLY SIGNED> By: Emerita Cordero 07/07/18 0721 [id number] Emerita Cordero /elmer
== END ==
LOC: PAIN 07:24
DX: M47.27 Other spondylosis with radiculopathy, lumbosacral region (principal); G89.4 Chronic pain syndrome; M19.90 Unspecified osteoarthritis, unspecified site; F11.23 Opioid dependence with withdrawal

== ENCOUNTER → 2018-09-30 | Outpatient (CLI) | payer OTHER, MEDICARE ==
[~2018-09-30] VITALS: Ht 190.5 cm; Wt 108.9 kg
[~2018-09-30] MED LIST changes: +DEXAMETHASO1 MG/1 ML PO
[2018-09-30 09:29] VITALS: BP 129/83
--- NOTE | 2018-09-30 09:39 | NUR ---
Pain Clinic Assessment: 1. History of Osteoarthritis: Not Applicable History of Rheumatoid Arthritis: Not Applicable 2. Height: 6 ft. 3 in. 190.5 cm. Weight: 240.0 lb. oz. 108.864 kg. Patient's BMI: 30.0 3. Vital Signs: BP: 129/83 Pulse: 79 Resp: 16 Temp: 02 Sat: 99 ECG Mon: 4. Pain Intensity: 7 5. Fall Risk: Dizziness: N Needs help standing or walking: N Fallen in the last 3 months: N Fall risk comments: 6. Patient on Blood Thinner: *ENRRIQUEQUIS 7. History of Hypertension: Y 8. Opioid Therapy greater than 6 weeks: Y Opiate Contract Signed: 03/25/16 9. Risk Assessment Tool Provided: LOW RISK 08/25 10. Functional Assessment Tool: 11. Recreational Drug Use: Never Drug Type: Tobacco Use: Never Smoker Tobacco Type: Amount or Packs/day: How Many Years: Alcohol Use: Past use Frequency: Quant:
--- NOTE | 2018-10-03 07:24 | HPC ---
[facility] [address] [place] [place] [address] PAIN MANAGEMENT CONSULTATION Name: ELÍAS DAVIS Room #: REG [facility] Oc.#: [id number] Admission: 09/30/18 Attend Phys: Emerita Cordero Discharge: Date of : 40 Report #: [id number] THIS REPORT FOR: //name// CC: Emerita Rea DATE OF SERVICE: 09/30/2018 CHIEF COMPLAINT: Low back pain and left lower extremity pain with paresthesias. HISTORY OF PRESENT ILLNESS: This is a 78-year-old gentleman who returns to the pain clinic today due to his longstanding history of low back pain with radicular symptoms. He tells me that he has decreased his hydrocodone use to about 1 pill a day and continues to take his fentanyl patches as prescribed. He gives a pain score of 7/10, which is fairly average for him. He does complain of some slight muscle strain in his lower back today. Otherwise overall, he feels like he is doing fairly well. He denies any constipation or daytime sleepiness. He tells me his pain is worse when he is active and lying down and sleeping, but he does use his medications and repositions himself and uses heat and that seems to relieve his pain. The patient would like a refill of his medications today and a decrease of his hydrocodone. ALLERGIES: TAPE AND PENICILLIN. CURRENT LIST OF MEDICATIONS: Duloxetine 30 mg daily, hydrocodone 5/325 once a day, fentanyl patch 12 mcg every 3 days, amiodarone 200 mg daily, Eliquis 5 mg b.i.d., Colace as needed, Tums as needed, guaifenesin 400 mg as needed, fish oil 1000 units a day, vitamin D3 400 units a day, Lasix 40 mg daily, Zocor 40 mg at bedtime, probiotic daily, aspirin 81 mg daily, potassium 10 mEq daily and Prevacid 30 mg daily. PQRS: 1. He has osteoarthritis in his back, knees and hips; does not have a diagnosis of rheumatoid arthritis. 2. Height is 6 feet 3 inches, weight is 240 pounds, BMI is 30. 3. Vital signs: Blood pressure 129/83, pulse 79, respirations 16, oxygen sat is 99. 4. Pain score is 7/10. 5. Fall risk: He denies dizziness. Does not need help walking or standing. Has not fallen in the last 3 months. 6. The patient is on Eliquis and does also take hypertension medicines. 7. Opioid therapy is greater than 6 weeks; therefore, an opioid signed contract is on the chart. 8. His risk assessment tool is low. His functional assessment is 42/70. 9. Recreational drug use: He denies. He is not a smoker and does not drink alcohol. Did check the prescription monitoring system, the patient is filling [address] [address] PAIN MANAGEMENT CONSULTATION Name: ELÍAS DAVIS Room #: REG [facility].#: [id number] Admission: 09/30/18 Attend Phys: Emerita Cordero Discharge: Date of : 40 Report #: [id number] appropriately for his medications. We will check a drug screen on his next visit. PHYSICAL EXAMINATION: GENERAL: This is a well-developed, well-nourished, well-hydrated, 78-year-old who appears his stated age. Placing his pain score today at 7/10. HEENT: Normocephalic, atraumatic. Pupils equal, round and reactive to light. EXTREMITIES: No clubbing, no cyanosis, no edema present. MUSCULOSKELETAL: Lower extremity strength judged to be 5/5 symmetrical and equal, raises from sitting to standing position without difficulty. He does walk with a slightly antalgic gait. IMPRESSION: 1. Chronic lumbar radiculopathy. 2. Lumbosacral spondylosis with radicular symptoms. 3. Lumbar degeneration. 4. Opioid dependency. 5. Complex medical management utilizing scheduled medications. 6. Osteoarthritis. 7. Chronic intractable pain. We reviewed the fact that opiate medications are being used to provide analgesia adequate to support activities of daily living, not attempting to achieve a specific pain score on the 0-10 Visual Analog Scale. The current opiate medications are providing sufficient analgesia to allow the patient to participate in activities of daily living. The patient is not exhibiting any aberrant behavior suggestive of drug diversion. The patient is not having any adverse reactions to medications. The patient is not suffering from daytime somnolence or mental acuity changes. The patient is managing opiate-induced constipation with appropriate xxol-vkh-zgknfwc agents and dietary considerations. The patient was counseled on concern for caution with operating a motor vehicle while using opiate medications. A physical exam was performed and the patient's functional status was evaluated. All patients with back pain were advised against the bed rest greater than 4 days and were advised to return to normal activities. Pain score assessment was noted and the treatment plan was reviewed with the patient. All current medications, both prescribed and OTC were reviewed and reconciled on the electronic medical record. Tobacco screening was accomplished and smoking cessation was advised when indicated. BMI was noted and diet/exercise modification was recommended for all patients following outside normal parameters. I reviewed with the patient today their responsibilities to safeguard prescription medications, reviewed their responsibility to utilize medications only as prescribed by the physician. They are to seek and receive pain [address] [place] [address] PAIN MANAGEMENT CONSULTATION Name: ELÍAS DAVIS Room #: REG [facility] M..#: [id number] Admission: 09/30/18 Attend Phys: Emerita Cordero Discharge: Date of : 40 Report #: [id number] medications only from 1 physician group ( [facility]). They are to use 1 pharmacy and keep the clinic informed if they change pharmacies. Their responsibilities include making followup visits in a timely fashion and to avoid abrupt discontinuation of medication usage. Their responsibilities further include bringing their medications (bottles from the pharmacy with residual pills) to the visit for possible confirmation of pill counts and the patient understands it is their responsibility to submit to random drug screens to ensure both that the medications prescribed are present, and that no other controlled substances are present. All prescriptions provided today were generated electronically. PLAN: 1. We discussed treatment options with this patient today. He tells me that he has decreased his hydrocodone to 1 a day and would like to have less scripts for this medication. We discussed that we will give him a hydrocodone 5/325, quantity 90. This will be a 3-month supply, but if he finds that this is not enough, he may call our office that will be a note in the chart that we will give him one other script to last him for the remainder of his 3 months. The patient is agreeable with this plan of care. 2. Scripts for fentanyl 12 mcg patch, quantity 10 for today, 4 and 8 week. The patient will continue those as he has been on a regular schedule. 3. Cymbalta 30 mg 1 p.o. q. day, also gave him 2 additional refills. 4. The patient will return in 3 months for appointment. At that time, we will do a buccal drug screen since it will be a year since his last screen at that time. 5. The patient is seen in collaboration today with Dr. Amari Mohamud. <ELECTRONICALLY SIGNED> By: Emerita Cordero 10/03/18 0724 [id number] 1804 Emerita Cordero /elmer
== END ==
LOC: PAIN 07:12
DX: M47.27 Other spondylosis with radiculopathy, lumbosacral region (principal); M51.16 Intervertebral disc disorders with radiculopathy, lumbar region; G89.4 Chronic pain syndrome; M19.90 Unspecified osteoarthritis, unspecified site; F11.20 Opioid dependence, uncomplicated; Z79.899 Other long term (current) drug therapy

== ENCOUNTER → 2018-12-20 | Outpatient (CLI) | payer OTHER, MEDICARE ==
[~2018-12-20] VITALS: Ht 190.5 cm; Wt 111.5 kg
[~2018-12-20] MED LIST changes: +BENADRYL25 MG PO; +PRAVACHOL40 MG PO; +TOPROL XL25 MG PO
[2018-12-20 09:50] VITALS: BP 123/74
--- NOTE | 2018-12-20 10:03 | NUR ---
Pain Clinic Assessment: 1. History of Osteoarthritis: Not Applicable History of Rheumatoid Arthritis: Not Applicable 2. Height: 6 ft. 3 in. 190.5 cm. Weight: 245.8 lb. oz. 111.494 kg. Patient's BMI: 30.7 3. Vital Signs: BP: 123/74 Pulse: 73 Resp: 16 Temp: 02 Sat: 98 ECG Mon: 4. Pain Intensity: 8 5. Fall Risk: Dizziness: N Needs help standing or walking: N Fallen in the last 3 months: N Fall risk comments: 6. Patient on Blood Thinner: *ELIQUIS 7. History of Hypertension: Y 8. Opioid Therapy greater than 6 weeks: Y Opiate Contract Signed: 03/25/16 9. Risk Assessment Tool Provided: LOW RISK 1 10. Functional Assessment Tool: 11. Recreational Drug Use: Never Drug Type: Tobacco Use: Never Smoker Tobacco Type: Amount or Packs/day: How Many Years: Alcohol Use: Past use Frequency: Quant:
--- NOTE | 2018-12-21 14:31 | HPC ---
[facility] [address] [place] [address] [address] PAIN MANAGEMENT CONSULTATION Name: ELÍAS DAVIS Room #: REG [facility] Bernadine#: [id number] Admission: 12/20/18 ������������������ Attend Phys: Emerita Cordero Discharge: ������������������ Date of : 40 Report #: [id number] THIS REPORT FOR: //name// CC: Emerita Rea DATE OF SERVICE: 12/20/2018 CHIEF COMPLAINT: Low back pain and lower extremity pain with paresthesias. HISTORY OF PRESENT ILLNESS: This is a pleasant 78-year-old gentleman who returns to the pain clinic today for medication management for his long-standing history of low back pain and radicular symptoms. Today, he is placing his pain score at 8/10. He said it is mostly in his lower back and his hips and bilateral knees. It is a achy stiffness that he feels, worse with activity and sleeping. He said his medications are very helpful. He is able to tolerate one hydrocodone a day as well as his fentanyl patch. He does have a few complaints of constipation, but he tells me that he eats fruit daily and uses stool softeners. He has no problem with daytime sleepiness or feeling like he is overmedicated. Today, he would like a refill of his medications. He is a little bit early today, but he tells me that he is getting ready to go on a trip to see grandchildren graduate from high school and college. ALLERGIES: TAPE AND PENICILLIN. MEDICATIONS: Toprol 25 mg daily, pravastatin 40 mg daily, dexamethasone drops in his nostrils t.i.d., Cymbalta 30 mg daily, hydrocodone 5/325 p.r.n., fentanyl 12 mcg patches every 72 hours, amiodarone 200 mg daily, Eliquis 5 mg b.i.d., Colace b.i.d., Tums daily, fish oil daily, vitamin D3 daily, Lasix 40 mg daily, lactobacillus daily, aspirin 81 mg daily, potassium 20 mEq daily and Prevacid 30 mg daily. PQRS: 1. He does have a history of osteoarthritis in his back, hips and knees. He is not diagnosed with rheumatoid arthritis. 2. Height is 6 feet 3 inches, weight is 245 and BMI is 30. 3. Vital signs, 123/74, pulse is 73, respirations 16 and oxygen sat is 98. 4. Pain score is 8/10. 5. Denies dizziness, does not need help walking or standing, has not fallen in the last 3 months. 6. The patient is on Eliquis and does take medicines for hypertension. 7. Opioid therapy is greater than 6 weeks; therefore, an opioid signed contract is on the chart. His risk assessment tool is low and his functional assessment is 37/70. 8. Recreational drug use, he denies. He is not a smoker and does not drink alcohol. [address] [address] PAIN MANAGEMENT CONSULTATION Name: ELÍAS DAVIS Room #: REG [facility] Colindres#: [id number] Admission: 12/20/18 ������������������ Attend Phys: Emerita Cordero Discharge: ������������������ Date of : 40 Report #: [id number] We did check the prescription monitoring system. The patient is filling appropriately for his medications. We will check a urine drug screen on this patient today, as it has been greater than a year since his last test. PHYSICAL EXAMINATION: GENERAL: This is a well-developed, well-nourished and well-hydrated 78-year-old that appears his stated age, placing his pain score today at 8/10. HEENT: Normocephalic, atraumatic. Pupils equal, round and reactive to light. Mucous membranes are moist. EXTREMITIES: No clubbing, no cyanosis, no edema present. MUSCULOSKELETAL: The patient rises from seated to standing position without difficulty. He walks with a slightly antalgic gait. His lower extremity strength judged to be 5/5 in all major muscle groups. The patient does complain of some knee pain today as well as bilateral hip pain. IMPRESSION: 1. Chronic lumbar radiculopathy. 2. Lumbosacral spondylosis with radicular symptoms. 3. Lumbar degeneration. 4. Opioid dependency. 5. Complex medical management under terms of written opioid agreement. 6. Osteoarthritis. 7. Chronic intractable pain. We reviewed the fact that opiate medications are being used to provide analgesia adequate to support activities of daily living, not attempting to achieve a specific pain score on the 0-10 Visual Analog Scale. The current opiate medications are providing sufficient analgesia to allow the patient to participate in activities of daily living. The patient is not exhibiting any aberrant behavior suggestive of drug diversion. The patient is not having any adverse reactions to medications. The patient is not suffering from daytime somnolence or mental acuity changes. The patient is managing opiate-induced constipation with appropriate fkqe-yet-erclspc agents and dietary considerations. The patient was counseled on concern for caution with operating a motor vehicle while using opiate medications. A physical exam was performed and the patient's functional status was evaluated. All patients with back pain were advised against the bed rest greater than 4 days and were advised to return to normal activities. Pain score assessment was noted and the treatment plan was reviewed with the patient. All current medications, both prescribed and OTC were reviewed and reconciled on the electronic medical record. Tobacco screening was accomplished and smoking cessation was advised when indicated. BMI was noted and diet/exercise modification was recommended for all patients following outside normal parameters. [facility] [address] [place] [address] PAIN MANAGEMENT CONSULTATION Name: ELÍAS DAVIS Room #: REG [facility].#: [id number] Admission: 12/20/18 ������������������ Attend Phys: Emerita Cordero Discharge: ������������������ Date of : 40 Report #: [id number] I reviewed with the patient today their responsibilities to safeguard prescription medications, reviewed their responsibility to utilize medications only as prescribed by the physician. They are to seek and receive pain medications only from 1 physician group ( [facility]). They are to use 1 pharmacy and keep the clinic informed if they change pharmacies. Their responsibilities include making followup visits in a timely fashion and to avoid abrupt discontinuation of medication usage. Their responsibilities further include bringing their medications (bottles from the pharmacy with residual pills) to the visit for possible confirmation of pill counts and the patient understands it is their responsibility to submit to random drug screens to ensure both that the medications prescribed are present, and that no other controlled substances are present. All prescriptions provided today were generated electronically. PLAN: 1. We discussed treatment options with the patient today. The patient tells me that his medications are very helpful, enabling him to carry out his activities and enjoy life. Refills today were given for his fentanyl 12 mcg patch every 72 hours, for today, 4-week and 8-week release and hydrocodone 5 mg, #90 as well as Cymbalta 30 mg, 30 with 2 additional refills. 2. We did collect a urine specimen today for a random drug screen on this patient. 3. The patient is seen in collaboration today with Dr. Elías Cruz. The patient will follow up in 3 months, at that time, make an appointment with Dr. Elías Cruz. ��������������������������������������������� <ELECTRONICALLY SIGNED> ���������������������������������������� By: Emerita Cordero ��������������������������������������������� 12/21/18 [id number] [id number] Emerita Cordero /nt
== END ==
LOC: PAIN 06:59
DX: M47.27 Other spondylosis with radiculopathy, lumbosacral region (principal); R20.2 Paresthesia of skin; G89.4 Chronic pain syndrome; Z88.0 Allergy status to penicillin; Z79.899 Other long term (current) drug therapy; Z79.891 Long term (current) use of opiate analgesic

== ENCOUNTER → 2019-02-07 | Outpatient (CLI) | payer OTHER, MEDICARE ==
[~2019-02-07] VITALS: Ht 190.5 cm; Wt 108.5 kg
--- NOTE | ~2019-02-07 | HPC ---
[facility] [address] [place] [address] PAIN MANAGEMENT CONSULTATION Name: ELÍAS DAVIS Room #: REG [facility] M.R.#: [id number] Admission: 02/07/19 ������������������ Attend Phys: Elías Cruz DO Discharge: ������������������ Date of : 40 Report #: [id number] THIS REPORT FOR: //name// CC: Sabine Cruz DATE OF SERVICE: 02/07/2019 CHIEF COMPLAINT: Low back pain, bilateral lower extremity pain. HISTORY OF PRESENT ILLNESS: As you know, the patient is a 78-year-old male with longstanding history of low back pain that presents both as facet arthropathy and chronic lumbar radicular symptoms. As you are aware, the patient suffers from fairly significant arthritic change in the lumbar spine, which we have treated both with interventional treatments and medication management. He continues to experience pain in the axial back and has returned with "new onset of pain." The patient reports pain in the axial back radiating down the buttock area, which is typical for him. This does not appear to have changed from our previous evaluations. The patient indicates he believes the intensity is higher. He states that he may have exacerbated symptoms about 3 weeks ago with increasing activity, no injury or trauma. He returns to discuss options for treatment and further evaluation. ALLERGIES: TAPE and PENICILLIN. CURRENT MEDICATIONS: Duloxetine 30 mg once a day; hydrocodone/acetaminophen 5/325 one tab p.o. t.i.d. p.r.n.; fentanyl 12 mcg patch, 1 patch q.72 hours; diphenhydramine 25 mg, 2 tabs p.o. at bedtime; metoprolol 25 mg once a day; atorvastatin 40 mg per day; dexamethasone 2 drops each nostril t.i.d.; amiodarone 200 mg once a day; Eliquis 5 mg once a day; docusate sodium 100 mg twice a day; calcium carbonate 1 tab per day; omega-3 fish oil 1 tab per day; cholecalciferol 4000 units per day; furosemide 40 mg per day; nitroglycerin 0.4 mg p.r.n.; lactobacillus 1 tab per day; aspirin 81 mg per day; potassium chloride 10 mEq p.o. daily; lansoprazole 30 mg per day. IMAGING: No new imaging available. PQRS: The patient has known osteoarthritic changes of the cervical spine, lumbar spine, bilateral hips and knees. No rheumatoid arthritis. He is not a fall risk, has not had a fall in the last 3 months. He is on a blood thinner in the form of Eliquis. He is treated for hypertension. He places pain at 9/10. Pain impact score 37/70, indicating moderate interference of daily activities secondary to pain. [facility] [address] [place] [address] PAIN MANAGEMENT CONSULTATION Name: ELÍAS DAVIS [id number] Admission: 02/07/19 ������������������ Attend Phys: Elías Cruz DO Discharge: ������������������ Date of : 40 Report #: [id number] PHYSICAL EXAMINATION: VITAL SIGNS: Blood pressure 112/70, pulse 69, respiratory rate 16 and unlabored. The patient is 97% on room air, height 6 feet 3 inches tall, weight 239.2 pounds, BMI calculated 29.9. GENERAL: Well-developed, well-nourished, well-hydrated 78-year-old male appearing stated age, pain is rated around 9/10. HEENT: Normocephalic, atraumatic. Pupils equal, round, reactive to light. Extraocular muscles are intact. Sclerae nonicteric without injection. NEUROLOGIC: Cranial nerves 2-12 grossly intact. Speech fluent. The patient deemed a good historian. LUNGS: Clear, no wheeze, rhonchi or rales. CARDIOVASCULAR: Regular. No appreciable gallop or rub. ABDOMEN: Soft, nontender, nondistended. EXTREMITIES: Show no clubbing, no cyanosis, and no edema. MUSCULOSKELETAL: Lower extremity strength appears symmetrical 5/5, intact to light touch from L1 through S2 dermatomes. Seated straight leg raising negative. Supine straight leg raising negative. Kathy's test is negative. Modified Gaenslen's positive for axial low back pain. Ankle clonus negative. Babinski is negative. Lumbar provocation testing is met with increasing pain and mild restriction of motion. Pain elicited with all maneuvers. ASSESSMENT: 1. Lumbosacral spondylosis without radiculopathy. 2. Facet arthropathy of the lumbar spine. 3. Chronic intractable pain. PLAN: 1. The patient has returned today in followup visit, indicating increasing axial back pain and bilateral buttock and posterolateral thigh pain. It does appear the patient is suffering from similar distribution of symptoms, change in intensity. He denies injury or trauma that may have led to symptom recurrence. We have been following the patient for an extended period of time for axial back pain issues per the request of his neurosurgery team. I do feel that further evaluation will be necessary at this point. He is also amenable to undergoing new imaging to determine if things have changed. The following prescriptions were provided to the patient today. 2. We will send the patient for x-ray of the lumbar spine, both AP and lateral imaging will be obtained. We will review those findings once they are available and contact the patient with the findings and suggestions for treatment. At present, I do not feel we will need to make adjustments in the treatment, but we will review the x-ray imaging and determine if more aggressive therapies might be necessary. 3. The patient can contact our clinic in the next couple of days in regards to findings if he does not hear back from us later today. If adjustments need to be made in treatment options, we will let the patient know. Obviously, treatment options have been effective to date with adjustments in medications, [facility] [address] [place] [address] PAIN MANAGEMENT CONSULTATION Name: ELÍAS DAVIS [id number] Admission: 02/07/19 ������������������ Attend Phys: Elías Cruz DO Discharge: ������������������ Date of : 40 Report #: [id number] trialing intra-articular facet injections, medial branch nerve blocks and even a periodic epidural injection. These may be the treatment courses in the future, though it is dependent on this x-ray imaging. 4. The patient will continue current medical therapy as previously prescribed. We made no changes in his therapy at this point. 5. X-ray imaging has been obtained. There are noted laminectomy changes at L3 and L4, degenerative changes again demonstrated L2-L3, L3-L4, L4-L5. The findings appear similar to previous MRI examination, dated 12/17/2016. The patient will be contacted in regards to these findings. 6. At present, treatment options remain similar to previous evaluations as we have noted no change in his x-ray imaging. Treatment options could include physical therapy, stretching exercise, core strengthening. We discussed intra-articular facet injections, medial branch nerve blocks and possible surgical options. The patient will consider these options and contact the clinic if he wishes to move forward with any more aggressive therapy. ��������������������������������������������� ���������������������������������������� By: ��������������������������������������������� [id number] Elías Cruz, /nt
[2019-02-07 10:14] VITALS: BP 112/70
--- NOTE | 2019-02-07 10:28 | NUR ---
Pain Clinic Assessment: 1. History of Osteoarthritis: Not Applicable History of Rheumatoid Arthritis: Not Applicable 2. Height: 6 ft. 3 in. 190.5 cm. Weight: 239.2 lb. oz. 108.501 kg. Patient's BMI: 29.9 3. Vital Signs: BP: 112/70 Pulse: 69 Resp: 16 Temp: 02 Sat: 97 ECG Mon: 4. Pain Intensity: 9 5. Fall Risk: Dizziness: N Needs help standing or walking: Y Fallen in the last 3 months: N Fall risk comments: 6. Patient on Blood Thinner: *ENRRIQUEQUIS 7. History of Hypertension: Y 8. Opioid Therapy greater than 6 weeks: Y Opiate Contract Signed: 03/25/16 9. Risk Assessment Tool Provided: LOW RISK 1 10. Functional Assessment Tool: 11. Recreational Drug Use: Never Drug Type: Tobacco Use: Never Smoker Tobacco Type: Amount or Packs/day: How Many Years: Alcohol Use: Past use Frequency: Quant:
== END ==
LOC: PAIN 06:47
DX: M47.817 Spondylosis without myelopathy or radiculopathy, lumbosacral region (principal); M12.88 Other specific arthropathies, not elsewhere classified, other specified site; M43.16 Spondylolisthesis, lumbar region; G89.4 Chronic pain syndrome; Z79.899 Other long term (current) drug therapy

== ENCOUNTER → 2019-03-01 | Outpatient (CLI) | payer OTHER, MEDICARE ==
[~2019-03-01] VITALS: Ht 190.5 cm; Wt 109.9 kg
[2019-03-01 10:14] VITALS: BP 114/74
--- NOTE | 2019-03-01 10:24 | NUR ---
Pain Clinic Assessment: 1. History of Osteoarthritis: Not Applicable History of Rheumatoid Arthritis: Not Applicable 2. Height: 6 ft. 3 in. 190.5 cm. Weight: 242.2 lb. oz. 109.861 kg. Patient's BMI: 30.3 3. Vital Signs: BP: 114/74 Pulse: 66 Resp: 16 Temp: 02 Sat: 95 ECG Mon: 4. Pain Intensity: 8-9 5. Fall Risk: Dizziness: N Needs help standing or walking: N Fallen in the last 3 months: N Fall risk comments: 6. Patient on Blood Thinner: NILDA 7. History of Hypertension: Y 8. Opioid Therapy greater than 6 weeks: Y Opiate Contract Signed: 03/25/16 9. Risk Assessment Tool Provided: LOW RISK 1 10. Functional Assessment Tool: 11. Recreational Drug Use: Never Drug Type: Tobacco Use: Never Smoker Tobacco Type: Amount or Packs/day: How Many Years: Alcohol Use: Past use Frequency: Quant:
--- NOTE | 2019-03-07 07:48 | HPC ---
[facility] [place] [address] PAIN MANAGEMENT CONSULTATION Name: ELÍAS DAVIS STEVEN Room #: REG [facility].#: [id number] Admission: 03/01/19 ������������������ Attend Phys: Elías Cruz DO Discharge: ������������������ Date of : 40 Report #: [id number] THIS REPORT FOR: //name// CC: Sabine Cruz DATE OF SERVICE: 03/01/2019 CHIEF COMPLAINT: Axial back pain, bilateral lower extremity pain. HISTORY OF PRESENT ILLNESS: As you know, the patient is a 78-year-old male with longstanding history of low back pain who presents today to undergo medial branch nerve blocks of the lumbar spine. As you are aware, patient suffers from significant facet arthropathy of the lumbar spine for which, we have treated with intra-articular facet injections, medial branch nerve blocks, radiofrequency lesioning in the past as well as medication management. Unfortunately his pain has begun to return. He returns today having received authorization to come off his anticoagulant in preparation for medial branch nerve blocks. If these are successful, we will then plan the patient to undergo next in the series of medial branch blocks in 2 weeks per the request of the china and silverware salesperson, Dr. Timmy Frederick as he does not want the patient to come off the medication every week, which is our typical trajectory for these injections. If the second series of medial branch nerve blocks are successful in alleviating symptoms greater than 70%, then radiofrequency lesioning will then be scheduled. He returns today to undergo medial branch nerve blocks of the L3, L4, L5 medial branch nerves bilaterally. He denies new injury or trauma that may have led to symptom reoccurrence. ALLERGIES: TAPE AND PENICILLIN. CURRENT MEDICATIONS: See extensive list in chart. IMAGING: No new imaging available. PQRS: The patient has known arthritic changes of the cervical spine, lumbar spine, bilateral hips and bilateral knees. No rheumatoid arthritis. He is not a fall risk, has not had a fall in the last 3 months. He is placing pain intensity today 8-9/10. He is on blood thinners in the form of Eliquis, but has stopped the medication 3 days prior to undergo this procedure, which has been cleared by his china and silverware salesperson, Dr. Timmy Frederick. He is treated for hypertension. He is on chronic opioids. He has a low opiate addiction potential. He is placing pain impact score 37/70 indicating moderate interference of daily activities secondary to pain. [address] [address] PAIN MANAGEMENT CONSULTATION Name: ELÍAS DAVIS STEVEN Room #: REG [facility]adine#: [id number] Admission: 03/01/19 ������������������ Attend Phys: Elías Cruz DO Discharge: ������������������ Date of : 40 Report #: [id number] PHYSICAL EXAMINATION: VITAL SIGNS: Blood pressure 114/74, pulse 66, respiratory rate 16 and unlabored. The patient is 95% on room air, height 6 feet 3 inches tall, weight 242 pounds, BMI calculated 30.3. GENERAL: Well-developed, well-nourished, well-hydrated, 78-year-old male appearing stated age. Pain is rated today at 8-9/10. HEENT: Normocephalic, atraumatic. Pupils equal, round, reactive to light. EXTREMITIES: Show no clubbing, no cyanosis, and no edema. MUSCULOSKELETAL: Lower extremity strength appears equal and symmetrical 5/5. Muscle bulk and tone is equal and symmetrical. The patient has difficulty standing from a seated position as this intensifies back pain. Slight forward flexion of lumbar spine improves overall pain. Lumbar extension, rotation, lateral flexion is all met with increasing pain. Seated straight leg raising negative. Supine straight leg raising negative. ASSESSMENT: 1. Lumbosacral spondylosis without radicular symptoms. 2. Facet arthropathy of the lumbar spine. 3. Chronic lumbar degeneration. 4. Chronic intractable pain. PLAN: 1. The patient returns today in followup visit to begin medial branch nerve blocks of the L3, L4, L5 levels. If this is successful at alleviating the patient's back pain, then possible radiofrequency lesion will be entertained. At this point, he has received authorization to come off his Eliquis to undergo this first series of blocks. If this is successful at alleviating 70% improvement in overall pain or greater, we would then move forward with the next in the series of medial branch nerve blocks scheduled for 2 weeks. We have extended the timeframe between these 2 injections due to the request of Dr. Timmy Frederick as he does not want the patient on and off the medication quickly, wants to spread that timeout for safety issues. We will have the patient contact our clinic to discuss efficacy of this first block. If this is effective, then we determine next in the series would be necessary. We will then have him scheduled. If this is ineffective, I would not recommend advancing further with this option of treatment. 2. No medication changes made at today's visit. The patient will continue current medical therapy as previously prescribed. 3. We will see the patient back for followup visit depending on the efficacy of today's treatment. PROCEDURE NOTE DESCRIPTION OF PROCEDURE: Bilateral L3, L4, L5 medial branch nerve block. This is the first of 2 diagnostic medial branch blocks on the left and right [address] [address] PAIN MANAGEMENT CONSULTATION Name: ELÍAS DAVIS Room #: REG [facility]#: [id number] Admission: 03/01/19 ������������������ Attend Phys: Elías Cruz DO Discharge: ������������������ Date of : 40 Report #: [id number] sides that the patient is undergoing. After obtaining written consent, the patient was taken back to the fluoroscopy suite and placed in a prone position on the fluoroscopy table with a pillow under the abdomen to decrease the lumbar lordosis. The skin overlying the lumbosacral area was prepped and draped in an aseptic fashion. The L4 transverse process corresponding to the L3 medial branch nerve, L5 transverse process corresponding to the L4 medial branch nerve on the right and left sides was visualized under AP fluoroscopy. The skin and subcutaneous tissue overlying the target sites of injection were anesthetized using 2 mL of 1% lidocaine. A 22-gauge 3-1/2 inch spinal needle with a bend tip was advanced under fluoroscopic guidance using a superior to inferior and lateral to medial approach to the dorsal, superior and medial aspect of the base of the transverse processes. The needles were then directed ventral, medial and caudad to reach the target locations. An oblique view facilitated needle placement with properly positioned needles in the middle of the "eye" of the Amrit dog for the medial branch blocks. At each site the needles rested on periosteum. After negative aspiration for heme or CSF, 0.2 mL of Omnipaque dye was injected at each site under live fluoroscopy, demonstrating absence of vascular uptake. After negative aspiration for heme or CSF, 0.5 mL of bupivacaine 0.5% was slowly injected at each site to avoid forcing the solution away from the target points. The needles were then removed. The L5 dorsal ramus block on the right and left sides were performed using a slightly oblique approach under fluoroscopic guidance, placing the needle within the groove between the sacral site and the superior articular process of S1. The needle rested on periosteum. After negative aspiration for heme or CSF, 0.2 mL of Omnipaque dye was injected at under live fluoroscopy, demonstrating absence of vascular uptake. After negative aspiration for heme or CSF, 0.5 mL of bupivacaine 0.5% was slowly injected to avoid forcing the solution away from the target point. The needle was then removed. Sterile bandages were placed over the injection site. There were no apparent complications. The patient tolerated the procedure well and was carefully escorted to the recovery room in stable condition. The VAS was 8-9/10 before the procedure and 1/10, 10 minutes after the procedure. After meeting discharge criteria, the patient was discharged home. ��������������������������������������������� <ELECTRONICALLY SIGNED> ���������������������������������������� By: Elías Cruz DO ��������������������������������������������� 03/07/19 [id number] Elías Cruz DO /nt
== END | disposition home or self-care (01) ==
LOC: PAIN 06:56
DX: M47.817 Spondylosis without myelopathy or radiculopathy, lumbosacral region (principal); M12.88 Other specific arthropathies, not elsewhere classified, other specified site; M51.36 Other intervertebral disc degeneration, lumbar region; G89.29 Other chronic pain; Z88.8 Allergy status to other drugs, medicaments and biological substances; Z88.0 Allergy status to penicillin; Z79.899 Other long term (current) drug therapy; Z79.82 Long term (current) use of aspirin

== ENCOUNTER → 2019-03-15 | Outpatient (CLI) | payer OTHER, MEDICARE ==
[~2019-03-15] VITALS: Ht 190.5 cm; Wt 109.8 kg
--- NOTE | ~2019-03-15 | HPC ---
[facility] [address] [place] [address] PAIN MANAGEMENT CONSULTATION Name: ELÍAS DAVIS BONITA [id number] Admission: 03/15/19 ������������������ Attend Phys: Elías Cruz DO Discharge: ������������������ Date of : 40 Report #: [id number] THIS REPORT FOR: //name// CC: MARIBELL FARRIS DATE OF SERVICE: 03/15/2019 REFERRING PHYSICIAN: Rupinder TORRES. PRIMARY CARE PHYSICIAN: Maribell Rea MD. CHIEF COMPLAINT: Axial back pain, bilateral lower extremity pain. HISTORY OF PRESENT ILLNESS: As you know, the patient is a 78-year-old male who returns today in followup visit having noted about 80% improvement in overall pain with bilateral medial branch nerves blocks provided at last visit. He returns today for the second in the series of blocks. If this is successful, then moving forward with radiofrequency lesioning of the medial branch nerves in the staged procedure. We will choose either the right or left side depending on efficacy from today's block. If he notes greater than 70% improvement in overall pain, would recommend moving forward with radiofrequency lesioning. He returns to undergo the procedure today. He is off his anticoagulant in preparation for procedure. He has received clearance to come off the anticoagulant with limitations, and he has a mental limitations. ALLERGIES: TAPE, PENICILLIN. CURRENT MEDICATIONS: See extensive list in chart. IMAGING: No imaging available. PQRS: The patient has known arthritic changes of the cervical spine, lumbar spine, bilateral hips, bilateral knees, no rheumatoid arthritis. He is placing pain intensity as 7/10, is not a fall risk, has not had a fall in last 3 months. He is on blood thinners in the form of Eliquis, but has discontinued per his investigative shopper's requirements for today's procedure. He is treated for hypertension. He is on opioids for an extended period of time, is a low risk for opioid addiction based on our addiction assessment tool. He is placing pain impact score 37/70, moderate interference of daily activities secondary to pain. PHYSICAL EXAMINATION: VITAL SIGNS: Blood pressure 125/76, pulse is 68, respiratory rate 18 and [facility] [address] [place] [address] PAIN MANAGEMENT CONSULTATION Name: ELÍAS DAVIS BONITA Room #: REG [facility]#: [id number] Admission: 03/15/19 ������������������ Attend Phys: Elías Cruz DO Discharge: ������������������ Date of : 40 Report #: [id number] unlabored. The patient is 96% on room air, height 6 feet 3 inches tall, weight 242 pounds, BMI calculated 30.2. GENERAL: Well-developed, well-nourished, well-hydrated 78-year-old male, appearing stated age, pain is rated today 7/10. HEENT: Normocephalic, atraumatic. Pupils equal, round, reactive to light. EXTREMITIES: Show no clubbing, no cyanosis and no edema. MUSCULOSKELETAL: Lower extremity strength is symmetrical again today /5. Muscle bulk and tone equal and symmetrical. He once again has difficulty rising from a seated position due to increasing back pain. He does have mild loss of lordotic curvature due to pain. 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 Seated straight leg raising negative. Supine straight leg raising negative. Modified Gaenslen's positive for axial low back pain. ASSESSMENT: 1. Lumbosacral spondylosis without radiculopathy. 2. Facet arthropathy of the lumbar spine. 3. Chronic axial back pain. 4. Lumbar degeneration. 5. Chronic intractable pain. PLAN: 1. The patient returns today in followup visit to undergo second in the series of medial branch nerve blocks to complete the process of determining whether or not moving forward with radiofrequency lesioning would be recommended. The patient and I discussed the risk and the benefits of the procedure today. If the patient sees good benefit with the radiofrequency lesioning provided today, we will then plan for radiofrequency lesioning of either the right or left side at our next visit if he is able to come off the Eliquis in preparation. He understands the risks and benefits of procedure, states understood and wished to proceed. 2. No medication changes made at today's visit. 3. The patient will return to our clinic to undergo radiofrequency lesioning of either the right or left medial branch nerves depending on pain levels at that visit. We will establish the patient the appointment per the investigative shopper's request to remain on and off his Eliquis appropriately. PROCEDURE NOTE DESCRIPTION OF PROCEDURE: Bilateral L3, L4, L5 medial branch nerve block. This is the second of 2 diagnostic medial branch blocks on the right and left side that the patient is undergoing. After obtaining written consent, the patient was taken back to the fluoroscopy suite and placed in a prone position on the fluoroscopy table with a pillow under the abdomen to decrease the lumbar lordosis. The skin overlying the [facility] [address] [place] [address] PAIN MANAGEMENT CONSULTATION Name: ELÍAS DAVIS [id number] Admission: 03/15/19 ������������������ Attend Phys: Elías Cruz DO Discharge: ������������������ Date of : 40 Report #: [id number] lumbosacral area was prepped and draped in an aseptic fashion. The L4 transverse process, corresponding L3 medial branch nerve, L5 transverse process corresponding the L4 medial branch nerve on the right and left side was visualized under AP fluoroscopy. The skin and subcutaneous tissue overlying the target site(s) of injection 0.25 mL was/were anesthetized using 2 mL of 1% lidocaine. A 22-gauge 3-1/2 inch spinal needle with a bent tip was advanced under fluoroscopic guidance using a superior to inferior and lateral to medial approach to the dorsal, superior and medial aspect of the base of the transverse process(es). The needles were then directed ventral, medial and caudad to reach the target location(s). An oblique view facilitated needle placement with properly positioned needles(s) in the middle of the "eye" of the Amrit dog for the medial branch block(s). At each site the needle(s) rested on periosteum. After negative aspiration for heme or CSF, 0.5 mL of Omnipaque dye was injected at each site under live fluoroscopy, demonstrating absence of vascular uptake. After negative aspiration for heme or CSF, Bupivacaine 0.5% was slowly injected at each site to avoid forcing the solution away from the target points(s). The needle(s) were then removed. The L5 dorsal ramus block on the right and left side was performed using a slightly oblique approach under fluoroscopic guidance, placing the needle within the groove between the sacral site and the superior articular process of S1. The needle rested on periosteum. After negative aspiration for heme or CSF, 0.25 mL of Omnipaque dye was injected at under live fluoroscopy, demonstrating absence of vascular uptake. After negative aspiration for heme or CSF, 0.5 mL of Bupivacaine 0.5% was slowly injected to avoid forcing the solution away from the target point. The needle was then removed. Sterile bandages were placed over the injection site. There were no apparent complications. The patient tolerated the procedure well and was carefully escorted to the recovery room in stable condition. The VAS was 7/10 before the procedure and 0/10, 10 minutes after the procedure. After meeting discharge criteria, the patient was discharged home. ��������������������������������������������� ���������������������������������������� By: ��������������������������������������������� [id number] Elías Cruz DO /nt
[2019-03-15 10:08] VITALS: BP 125/76
--- NOTE | 2019-03-15 10:13 | NUR ---
Pain Clinic Assessment: 1. History of Osteoarthritis: SPINE HIPS KNEES History of Rheumatoid Arthritis: Not Applicable 2. Height: 6 ft. 3 in. 190.5 cm. Weight: 242.0 lb. oz. 109.771 kg. Patient's BMI: 30.2 3. Vital Signs: BP: 125/76 Pulse: 68 Resp: 12 Temp: 02 Sat: 96 ECG Mon: 4. Pain Intensity: 7 5. Fall Risk: Dizziness: N Needs help standing or walking: N Fallen in the last 3 months: N Fall risk comments: 6. Patient on Blood Thinner: ELIQUIS 7. History of Hypertension: Y 8. Opioid Therapy greater than 6 weeks: Y Opiate Contract Signed: 03/25/16 9. Risk Assessment Tool Provided: LOW RISK 1 10. Functional Assessment Tool: 11. Recreational Drug Use: Never Drug Type: Tobacco Use: Never Smoker Tobacco Type: Amount or Packs/day: How Many Years: Alcohol Use: Past use Frequency: Quant:
== END | disposition home or self-care (01) ==
LOC: PAIN 06:51
DX: M51.36 Other intervertebral disc degeneration, lumbar region (principal); M47.817 Spondylosis without myelopathy or radiculopathy, lumbosacral region; M47.816 Spondylosis without myelopathy or radiculopathy, lumbar region; G89.29 Other chronic pain; Z88.0 Allergy status to penicillin; Z79.01 Long term (current) use of anticoagulants; Z79.899 Other long term (current) drug therapy; Z79.82 Long term (current) use of aspirin; Z79.891 Long term (current) use of opiate analgesic

== ENCOUNTER → 2019-04-12 | Outpatient (CLI) | payer OTHER, MEDICARE ==
[~2019-04-12] VITALS: Ht 190.5 cm; Wt 109.9 kg
[2019-04-12 10:38] VITALS: BP 107/71
--- NOTE | 2019-04-12 10:46 | NUR ---
Pain Clinic Assessment: 1. History of Osteoarthritis: SPINE HIPS KNEES History of Rheumatoid Arthritis: Not Applicable 2. Height: 6 ft. 3 in. 190.5 cm. Weight: 242.2 lb. oz. 109.861 kg. Patient's BMI: 30.3 3. Vital Signs: BP: 107/71 Pulse: 70 Resp: 20 Temp: 02 Sat: 98 ECG Mon: 4. Pain Intensity: 10 5. Fall Risk: Dizziness: N Needs help standing or walking: Y Fallen in the last 3 months: N Fall risk comments: 6. Patient on Blood Thinner: ELIQUIS 7. History of Hypertension: Y 8. Opioid Therapy greater than 6 weeks: Y Opiate Contract Signed: 03/25/16 9. Risk Assessment Tool Provided: LOW RISK 1 10. Functional Assessment Tool: 11. Recreational Drug Use: Never Drug Type: Tobacco Use: Never Smoker Tobacco Type: Amount or Packs/day: How Many Years: Alcohol Use: Past use Frequency: Quant:
--- NOTE | 2019-04-25 11:15 | HPC ---
[facility] [place] [address] PAIN MANAGEMENT CONSULTATION Name: DEJONRICELÍAS [facility] #: [facility] [id number] Admission: 04/12/19 Attend Phys: Elías Cruz DO Discharge: Date of : 40 Report #: [id number] THIS REPORT FOR: //name// CC: Jim Cruz DATE OF SERVICE: 04/12/2019 CHIEF COMPLAINT: Axial back pain with bilateral lower extremity symptoms. HISTORY OF PRESENT ILLNESS: As you know, the patient is a 78-year-old male who returns today in followup visit to undergo radiofrequency lesioning of the L2, L3, L4, L5 medial branch nerves on the left side. He is placing his pain today at approximately 10/10. He indicates no changes in his medical history since our last visit. He successfully completed medial branch blocks that did provide good and prolonged benefit in an appropriate timeframe. He returns to undergo radiofrequency lesioning of the left L2, L3, L4, L5 medial branch nerves. He has discontinued his anticoagulant in preparation for today's procedure per the release of the patient's physician who prescribes that medication. ALLERGIES: TAPE AND PENICILLIN. CURRENT MEDICATIONS: See extensive list in chart. IMAGING: No new imaging available. PQRS: The patient has known osteoarthritic changes of the cervical spine, lumbar spine, bilateral hips and knees. No rheumatoid arthritis. He is placing pain intensity today 10/10. He is a fall risk, but has not had a fall in last 3 months. He is on a blood thinner in the form of Eliquis, but has discontinued this medication 3 days prior to today's procedure to undergo the radiofrequency lesioning. He is treated for hypertension. He is on chronic opioids. He has a low opioid addiction potential. He is placing current pain score 37/70, moderate interference of daily activities secondary to pain. PHYSICAL EXAMINATION: VITAL SIGNS: Blood pressure 107/71, pulse 70, respiratory rate 20 and unlabored. The patient is 98% on room air, height 6 feet 3 inches tall, weight 242.2 pounds, BMI calculated 30.3. GENERAL: Well-developed, well-nourished, well-hydrated 78-year-old male appearing stated age, pain is rated 10/10. HEENT: Normocephalic, atraumatic. Pupils equal, round, reactive to light. EXTREMITIES: Show no clubbing, no cyanosis, and no edema. MUSCULOSKELETAL: Lower extremity strength is symmetrical 5/5. Muscle bulk and [address] [address] PAIN MANAGEMENT CONSULTATION Name: ELÍAS DAVIS Room #: REG [facility].#: [id number] Admission: 04/12/19 Attend Phys: Elías Cruz DO Discharge: Date of : 40 Report #: [id number] tone is symmetrical in comparing left lower extremity to right. Lumbar provocation is met with increasing axial back pain, no radiation of symptoms. Seated straight leg raising negative. Supine straight leg raising negative. ASSESSMENT: 1. Lumbosacral spondylosis without radiculopathy. 2. Facet arthropathy of the lumbar spine. 3. Chronic axial back pain. 4. Lumbar degeneration. 5. Chronic intractable pain. PLAN: 1. The patient returns today in followup visit to undergo radiofrequency lesioning of the left L2, L3, L4 and L5 medial branch nerves. He has successfully completed medial branch blocks, which provided good benefit. He returns to undergo the procedure today, has been advised risks and benefits, states understood and wished to proceed. 2. No medication changes provided at today's visit. The patient will restart his Eliquis as directed by the prescribing physician. He will discontinue his medication in preparation for radiofrequency lesioning on the right side in 3 weeks. DESCRIPTION OF PROCEDURE: Left L2, L3, L4 and L5 radiofrequency lesioning of the medial branch nerves. The procedure was explained. Informed consent was obtained from the patient. The patient was informed of the risks of procedure including infection, bleeding, nerve damage, failure to produce pain relief and postoperative discomfort lasting for several weeks. After obtaining written consent, the patient was then taken back to fluoroscopy suite, placed in prone position with pillow under abdomen to decrease lumbar lordosis. Skin overlying the lumbosacral area was then prepped and draped in aseptic fashion. AP imaging of the lumbar spine was used to identify the L2 through L5 vertebral bodies and the sacral ala. The target locations on the left side of the L3 transverse process corresponding to the L2 medial branch nerve, the L4 transverse process corresponding to the L3 medial branch nerve and the L5 transverse process corresponding to the L4 medial branch nerve were identified. Using a 27-gauge, 1-1/4 inch needle, the skin was anesthetized with 1 mL of 1% lidocaine at each site. We were careful to only anesthetize skin and not the deep tissues. The radiofrequency lesioning needles were then advanced under fluoroscopic guidance using a superior to inferior, lateral to medial approach to the dorsal superior and medial aspect of the base of transverse processes. [place] were then directed caudally to reach the target locations. Oblique view facilitated needle placement with properly positioned needles within the middle of the eye of the Amrit dog. At each site, needles rested on periosteum. [address] [address] PAIN MANAGEMENT CONSULTATION Name: ELÍAS DAVIS Room #: REG [facility]#: [id number] Admission: 04/12/19 Attend Phys: Elías Cruz DO Discharge: Date of : 40 Report #: [id number] Touching the bone assured we had not placed the needle too deeply. Radiofrequency lesioning of the left L5 medial branch nerve was performed using a superior to inferior and lateral to medial approach under fluoroscopic guidance, placing the needle within the groove between the sacral ala and the superior articular process of S1. Needle rested on periosteum. Stimulation was performed at each level once the cannulas were in position. Sensory stimulation was performed at 0.5, 0.4, 0.3, 0.4 with impedance of 220, 172, 253, and 159 at 50 Hz for the L2, L3, L4, L5 medial branch nerves respectively. Good stimulation of the lumbar buttock region was elicited indicating correct alignment with the posterior primary ramus. Absence of lower motor fasciculation was noted at 3 volts 2 Hz when stimulating the L2, L3, L4, L5 medial branch nerves respectively. Following this, affirmation of dissociation between sensory and motor stimulation, negative aspiration for heme and cerebrospinal fluid was noted at each level. Next, 1 mL bupivacaine 0.5% was injected slowly at each site. After a 90-second delay, lesions were performed at a temperature of 80 degrees Celsius for a total of 90 seconds. After the needle tips had cooled to 45 degree Celsius, they were sequentially removed. At the end of the procedure, the patient was noted to be able to move all 4 extremities purposefully. The patient tolerated procedure well, carefully escorted to recovery room in stable condition. No apparent complications. After meeting our discharge criteria, the patient discharged home. <ELECTRONICALLY SIGNED> By: Elías Cruz DO 04/25/19 1115 [id number] Elías Cruz DO /nt
== END | disposition home or self-care (01) ==
LOC: PAIN 06:45
DX: M47.816 Spondylosis without myelopathy or radiculopathy, lumbar region (principal); M51.36 Other intervertebral disc degeneration, lumbar region; G89.29 Other chronic pain; M19.90 Unspecified osteoarthritis, unspecified site; Z79.01 Long term (current) use of anticoagulants; Z79.891 Long term (current) use of opiate analgesic; Z79.899 Other long term (current) drug therapy; Z88.0 Allergy status to penicillin; Z79.82 Long term (current) use of aspirin; Z98.890 Other specified postprocedural states

== ENCOUNTER → 2019-05-10 | Outpatient (CLI) | payer OTHER, MEDICARE ==
[~2019-05-10] VITALS: Ht 190.5 cm; Wt 107.5 kg
[2019-05-10 10:34] VITALS: BP 133/78
--- NOTE | 2019-05-10 10:39 | NUR ---
Pain Clinic Assessment: 1. History of Osteoarthritis: SPINE HIPS KNEES History of Rheumatoid Arthritis: Not Applicable 2. Height: 6 ft. 3 in. 190.5 cm. Weight: 237.0 lb. oz. 107.503 kg. Patient's BMI: 29.6 3. Vital Signs: BP: 133/78 Pulse: 85 Resp: 16 Temp: 02 Sat: 97 ECG Mon: 4. Pain Intensity: 8 5. Fall Risk: Dizziness: N Needs help standing or walking: N Fallen in the last 3 months: N Fall risk comments: 6. Patient on Blood Thinner: ELIQUIS 7. History of Hypertension: Y 8. Opioid Therapy greater than 6 weeks: Y Opiate Contract Signed: 03/25/16 9. Risk Assessment Tool Provided: LOW RISK 1 10. Functional Assessment Tool: 11. Recreational Drug Use: Never Drug Type: Tobacco Use: Never Smoker Tobacco Type: Amount or Packs/day: How Many Years: Alcohol Use: Past use Frequency: Quant:
--- NOTE | 2019-05-17 09:31 | HPC ---
[facility] [place] [address] PAIN MANAGEMENT CONSULTATION Name: YESSIAMINAELÍAS Room #: REG [facility].#: [id number] Admission: 05/10/19 ������������������ Attend Phys: Elías Cruz DO Discharge: ������������������ Date of : 40 Report #: [id number] THIS REPORT FOR: //name// CC: Jim Cruz DATE OF SERVICE: 05/10/2019 CHIEF COMPLAINT: Axial back pain. HISTORY OF PRESENT ILLNESS: As you know, the patient is a 78-year-old male who returns today in followup visit to complete radiofrequency lesioning of the medial branch nerves of the lumbar spine. The patient notes near 90% improvement in overall pain from the radiofrequency on the left. He returns today with complaints of ongoing right back pain. He is hopeful to see improvement on his right back pain with today's procedure. The patient places current pain around 8/10 on the right, only 1/10 on the left. He returns having discontinued his Eliquis in preparation for radiofrequency lesioning of the right L2, L3, L4 and L5 medial branch nerves. ALLERGIES: ADHESIVE TAPE, PENICILLIN. CURRENT MEDICATIONS: See extensive list in chart. SOCIAL HISTORY: The patient denies tobacco, alcohol, IV or illicit drug use. He is accompanied by his present in room today. IMAGING: No new imaging available. PQRS: The patient has known arthritic changes of the cervical spine, lumbar spine, bilateral hips and knees. No rheumatoid arthritis. Pain is rated around 8/10. He is not a fall risk, has not had a fallen in last 3 months. He is on blood thinners in the form of Eliquis, but has discontinued the medication 3 days prior to today's procedure. He is treated for hypertension. He is on chronic opioids. He has a low opiate addiction potential. Pain impact score 37/70, moderate interference of daily activities secondary to pain. PHYSICAL EXAMINATION: VITAL SIGNS: Blood pressure 133/78, pulse 85, respiratory rate 16 and unlabored. The patient is 97% on room air, height 6 feet 3 inches tall, weight 237 pounds, BMI calculated 29.6. GENERAL: Well-developed, well-nourished, well-hydrated 78-year-old male appearing stated age, pain is rated at around 8/10. HEENT: Normocephalic, atraumatic. Pupils equal, round, reactive to light. [facility] [address] [place] [address] PAIN MANAGEMENT CONSULTATION Name: ELÍAS DAVIS Room #: REG [facility].#: [id number] Admission: 05/10/19 ������������������ Attend Phys: Elías Cruz DO Discharge: ������������������ Date of : 40 Report #: [id number] EXTREMITIES: Show no clubbing, no cyanosis, and no edema. MUSCULOSKELETAL: Lower extremity strength is symmetrical 5/5. Pain is elicited with standing from a seated position on the right. Lumbar provocation testing including extension, rotation, lateral flexion all intensify the pain to the right, negative left. ASSESSMENT: 1. Lumbosacral spondylosis without radicular symptoms. 2. Facet arthropathy of the lumbar spine. 3. Degeneration of the lumbar spine. 4. Chronic axial back pain. 5. Chronic intractable pain. PLAN: 1. The patient has returned today in followup visit to undergo radiofrequency lesioning of the right L2, L3, L4 and L5 medial branch nerves to complete the radiofrequency process started with the left side, 3 weeks ago. He has discontinued his anticoagulant in preparation for today's procedure. He has been advised the risks and benefits. These risks include but are not necessarily limited to bleeding, bruising, infection, worsening pain, no relief of pain, also risk of temporary or permanent muscle weakness, temporary or permanent nerve damage, possible paralysis and . The patient states understood and wished to proceed. 2. No medication changes made at today's visit. The patient will restart his Eliquis this evening and continue his Eliquis as directed. 3. We will see the patient back in followup visit on an as needed basis for possible adjustments in medication management. PROCEDURE NOTE DESCRIPTION OF PROCEDURE: Right L2, L3, L4 and L5 radiofrequency lesioning of medial branch nerves of the lumbar spine. Procedure was explained. Informed consent was obtained from the patient. The patient was informed of the risks of the procedure including infection, bleeding, nerve damage, failure to produce pain relief and postoperative discomfort lasting for several weeks. The patient was then taken to the fluoroscopy suite, placed in prone position with pillow under abdomen to decrease lumbar lordosis. Skin overlying lumbosacral area then prepped and draped in aseptic fashion. AP imaging of the lumbar spine was used to identify the L2 through L5 vertebral bodies and the sacral ala. The target locations on the right side of the L3 transverse process corresponding to the L2 medial branch nerve, the L4 transverse process corresponding to the L3 medial branch nerve and the L5 transverse process corresponding to the L4 medial branch nerve were identified. Using a 27-gauge [address] [address] PAIN MANAGEMENT CONSULTATION Name: ELÍAS DAVIS Room #: REG [facility]#: [id number] Admission: 05/10/19 ������������������ Attend Phys: Elías Cruz DO Discharge: ������������������ Date of : 40 Report #: [id number] 1-1/4 inch needle, skin wheals were placed at the junction of the transverse processes and the respective superior articular process using 1 mL of 1% lidocaine. We were careful to only anesthetize the skin and not the deep tissues. Radiofrequency lesioning needles were then advanced under fluoroscopic guidance using a superior to inferior, lateral to medial approach to the dorsal superior and medial aspect of the base of the transverse processes. [place] were then directed caudally to reach the target locations. Oblique view facilitated needle placement with properly positioned needles within the middle of the "eye" of the Amrit dog. At each site, needles rested on periosteum. Touching bone initially showed the needles were not placed too deeply. Radiofrequency lesioning of the L5 medial branch nerve on the right side was performed using a superior and inferior, lateral to medial approach under fluoroscopic guidance, placing the needle within the groove between the sacral ala and the superior articular process of S1. Needle rested on periosteum. Stimulation was performed at each level once the cannulas were in position. Sensory stimulation was performed at 0.2, 0.4, 0.3 and 0.1 with impedance of 324, 222, 230 and 218 at 50 Hz for the L2, L3, L4, L5 medial branch nerves respectively. Good stimulation of the lumbar and buttock region was elicited indicating correct alignment with the posterior primary ramus. Absence of lower extremity motor fasciculation was noted at 3 volts 2 Hz stimulation when testing the L2, L3, L4 and L5 medial branch nerves respectively. Following this, affirmation of dissociation between sensory and motor stimulation, negative aspiration was noted for heme and cerebrospinal fluid at each level. Next, 1 mL bupivacaine 0.5% was injected slowly. After a 90-second delay, lesions were performed at a temperature of 80 degrees Celsius for 90 seconds. After the needles had cooled, 1 mL of a solution containing 1 mL, 40 mg per mL, 40 mg total triamcinolone and 3 mL bupivacaine 0.5% was injected slowly. [place] were retracted approximately half way, flushed with 1 mL of bupivacaine 0.5%, then removed. Sterile bandage placed over injection site. There were no new motor deficits present in the lower extremities following procedure. The patient tolerated procedure well, carefully escorted to recovery room in stable condition. No apparent complications. After meeting discharge criteria, the patient discharged home. ��������������������������������������������� <ELECTRONICALLY SIGNED> ���������������������������������������� By: Elías Cruz DO ��������������������������������������������� 05/17/19 0931 [id number] Elías Cruz DO /nt
== END | disposition home or self-care (01) ==
LOC: PAIN 07:00
DX: M54.9 Dorsalgia, unspecified (principal); M47.817 Spondylosis without myelopathy or radiculopathy, lumbosacral region; M47.816 Spondylosis without myelopathy or radiculopathy, lumbar region; M51.36 Other intervertebral disc degeneration, lumbar region; G89.29 Other chronic pain; I10 Essential (primary) hypertension; M19.90 Unspecified osteoarthritis, unspecified site; Z88.0 Allergy status to penicillin; Z79.891 Long term (current) use of opiate analgesic; Z79.01 Long term (current) use of anticoagulants; Z79.82 Long term (current) use of aspirin; Z79.899 Other long term (current) drug therapy

== ENCOUNTER → 2019-06-27 | Outpatient (CLI) | payer OTHER, MEDICARE ==
[~2019-06-27] VITALS: Ht 190.5 cm; Wt 106.6 kg
[~2019-06-27] MED LIST changes: +SPIRONOLACTONE25 MG PO
[2019-06-27 09:49] VITALS: BP 113/67
--- NOTE | 2019-06-27 09:55 | NUR ---
Pain Clinic Assessment: 1. History of Osteoarthritis: SPINE HIPS KNEES History of Rheumatoid Arthritis: Not Applicable 2. Height: 6 ft. 3 in. 190.5 cm. Weight: 235.0 lb. oz. 106.596 kg. Patient's BMI: 29.4 3. Vital Signs: BP: 113/67 Pulse: 73 Resp: 17 Temp: 02 Sat: 94 ECG Mon: 4. Pain Intensity: 8 5. Fall Risk: Dizziness: N Needs help standing or walking: N Fallen in the last 3 months: N Fall risk comments: 6. Patient on Blood Thinner: ELIQUIS 7. History of Hypertension: Y 8. Opioid Therapy greater than 6 weeks: Y Opiate Contract Signed: 03/25/16 9. Risk Assessment Tool Provided: LOW RISK 1 10. Functional Assessment Tool: 11. Recreational Drug Use: Never Drug Type: Tobacco Use: Never Smoker Tobacco Type: Amount or Packs/day: How Many Years: Alcohol Use: Past use Frequency: Quant:
--- NOTE | 2019-06-28 09:24 | HPC ---
[facility] [address] [place] [address] PAIN MANAGEMENT CONSULTATION Name: ELÍAS DAVIS Room #: REG [facility] M..#: [id number] Admission: 06/27/19 Attend Phys: Emerita Cordero Discharge: Date of : 40 Report #: [id number] THIS REPORT FOR: //name// CC: MARIBELL Cruz DO DATE OF SERVICE: 06/27/2019 CHIEF COMPLAINT: Axial back pain with bilateral lower extremity pain. HISTORY OF PRESENT ILLNESS: This is a 78-year-old gentleman who returns to the Pain Clinic today for refill of his medications. He is reporting a pain score of 8/10 in his low back and bilateral buttocks and hips. It is a constant, aching pain that is worse with his activity and walking. He finds his medication helpful, as well as repositioning and using pillows. He does report that the radiofrequency ablation helped his axial back pain, but he continues to have buttock pain that is more significant. He feels that the radiofrequency helped him at least 50%. He denies any problems with constipation as long as he takes MiraLax on a daily basis, and denies any daytime sleepiness. The patient is requesting to have hydrocodone 5/325 at least 2 tablets a day; he has been getting 90 pills for 3 months. He is reporting that he takes 2 every day and that has been beneficial. He tells me a quite lengthy story of how he used to be on 325 hydrocodone and that we did decrease him, but he is requiring 2 a day instead of 1, which he has been on in the past year. He is wondering about a slight increase today. ALLERGIES: TAPE, PENICILLIN. CURRENT LIST OF MEDICATIONS: Fentanyl patch 12 mcg every 72 hours, hydrocodone 5/325 p.r.n., Cymbalta 300 mg, metoprolol 25 mg, pravastatin 40 mg, dexamethasone drops p.r.n., Pacerone 200 mg, Eliquis 5 mg b.i.d., Colace, Tums, fish oil, vitamin D, Lasix 40 mg, lactobacillus, aspirin, potassium, Prevacid, lisinopril 2.5 mg daily and spironolactone 25 mg daily. PQRS: 1. He has known arthritic changes in his cervical and lumbar spine, bilateral hips and knees. 2. Denies any rheumatoid arthritis. 3. Height is 6 feet 3 inches, weight is 235, BMI is 29. 4. Vital signs 113/67, pulse is 73, respirations 16, oxygen sat is 94. 5. Pain score is 8/10. 6. Denies dizziness, does not need help walking or standing, [place] [address] PAIN MANAGEMENT CONSULTATION Name: ELÍAS DAVIS Room #: REG [facility] [id number] Admission: 06/27/19 Attend Phys: Emerita Cordero Discharge: Date of : 40 Report #: [id number] the last 3 months. 7. The patient is on Eliquis and also takes medicine for hypertension. 8. Opiate therapy is greater than 6 weeks; therefore, an opioid signed contract is on the chart. Risk assessment tool is low. Functional assessment is 37/70. 9. Recreational drug use, he denies. He is not a smoker and he used alcohol in the past. According to the prescription monitoring system, the patient is filling appropriately for his medication, is here in a timely fashion. We will check a random drug screen on him again next year. There is one on the chart that is appropriate. He reports that he safe guards his medications at all times. PHYSICAL EXAMINATION: GENERAL: This is a well-developed, well-nourished, well-hydrated 78-year-old gentleman who appears his stated age, placing his current pain score at 8/10. HEENT: Normocephalic, atraumatic. Extraocular eye muscles are intact. Mucous membranes are moist. EXTREMITIES: No clubbing, no cyanosis, no edema. MUSCULOSKELETAL: The patient has pain in his lumbar spine with flexion and extension, more significantly on the right lower back. He rises from seated to standing position slowly, walks with a slightly antalgic gait. His lower extremity strength judged to be 5/5 with all major muscle groups. ASSESSMENT: 1. Lumbosacral spondylosis without radiculopathy. 2. Facet arthroscopy of the lumbar spine. 3. Degeneration of the lumbar spine. 4. Chronic axial back pain. 5. Chronic intractable pain. We reviewed the fact that opiate medications are being used to provide analgesia adequate to support activities of daily living, not attempting to achieve a specific pain score on the 0-10 Visual Analog Scale. The current opiate medications are providing sufficient analgesia to allow the patient to participate in activities of daily living. The patient is not exhibiting any aberrant behavior suggestive of drug diversion. The patient is not having any adverse reactions to medications. The patient is not suffering from daytime somnolence or mental acuity changes. The patient is managing opiate-induced constipation with appropriate [id number] agents and dietary considerations. The patient was counseled on concern for caution with operating a motor vehicle while using opiate medications. I reviewed with the patient today their responsibilities to safeguard prescription medications, reviewed their responsibility to utilize medications only as prescribed by the physician. They are to seek and receive pain medications only from 1 physician group ([facility]). They are to use 1 [facility] [address] [place] [address] PAIN MANAGEMENT CONSULTATION Name: ELÍAS DAVIS Room #: REG [facility]..#: [id number] Admission: 06/27/19 Attend Phys: Emerita Cordero Discharge: Date of : 40 Report #: [id number] pharmacy and keep the clinic informed if they change pharmacies. Their responsibilities include making followup visits in a timely fashion and to avoid abrupt discontinuation of medication usage. Their responsibilities further include bringing their medications (bottles from the pharmacy with residual pills) to the visit for possible confirmation of pill counts and the patient understands it is their responsibility to submit to random drug screens to ensure both that the medications prescribed are present, and that no other controlled substances are present. All prescriptions provided today were generated electronically. PLAN: 1. We discussed treatment options with the patient today. The patient is requesting increase in his hydrocodone to 2 tablets a day. According to the chart, he has been taking 1 tablet of hydrocodone a day for the past year; previously that, he was taking more. I explained to him that we do need to keep his medicines under 50 morphine mEq according to the CDC guidelines. With this increase, he will be at about 40 morphine mEq per day. I explained to him that we will not be able to go up any higher than this and encouraged him to take the lowest most effective dose, that being 1 a day if he is able with occasional 2. He verbalizes understanding. 2. Scripts given today for fentanyl patch 12 mcg for today 4 week, an 8-week release, hydrocodone 5/325, #60 for today, 4 week 8-week release and Cymbalta 30 mg, #30 with 2 additional refills. 3. The patient is seen today in collaboration with Dr. Elías Cruz. The patient will return in 3 months. <ELECTRONICALLY SIGNED> By: Emerita Cordero 06/28/19 0924 [id number] Emerita Cordero /elmer
== END ==
LOC: PAIN 06:44
DX: M47.817 Spondylosis without myelopathy or radiculopathy, lumbosacral region (principal); M12.88 Other specific arthropathies, not elsewhere classified, other specified site; M51.36 Other intervertebral disc degeneration, lumbar region; G89.4 Chronic pain syndrome

== ENCOUNTER → 2019-10-18 | Outpatient (CLI) | payer OTHER, MEDICARE ==
[~2019-10-18] VITALS: Ht 190.5 cm; Wt 108.4 kg
[~2019-10-18] MED LIST changes: +BACTRIM DS TAB1 EAC1 PO; +FLONASE 0.05%50 MCG NASAL; +PACERONE100 MG PO; +VITAMIN B-121000 MCG PO; +VITAMIN C1000 MG PO
[2019-10-18 12:44] VITALS: BP 139/79
--- NOTE | 2019-10-18 12:48 | NUR ---
Pain Clinic Assessment: 1. History of Osteoarthritis: SPINE HIPS KNEES History of Rheumatoid Arthritis: Not Applicable 2. Height: 6 ft. 3 in. 190.5 cm. Weight: 239.0 lb. oz. 108.410 kg. Patient's BMI: 29.9 3. Vital Signs: BP: 139/79 Pulse: 79 Resp: 16 Temp: 02 Sat: 99 ECG Mon: 4. Pain Intensity: 4 5. Fall Risk: Dizziness: N Needs help standing or walking: N Fallen in the last 3 months: N Fall risk comments: 6. Patient on Blood Thinner: ELIQUIS 7. History of Hypertension: Y 8. Opioid Therapy greater than 6 weeks: Y Opiate Contract Signed: 03/25/16 9. Risk Assessment Tool Provided: LOW RISK 1 10. Functional Assessment Tool: 11. Recreational Drug Use: Never Drug Type: Tobacco Use: Never Smoker Tobacco Type: Amount or Packs/day: How Many Years: Alcohol Use: Past use Frequency: Quant:
--- NOTE | 2019-10-20 08:42 | HPC ---
[facility] [address] [place] [address] PAIN MANAGEMENT CONSULTATION Name: ELÍAS DAVIS Room #: REG [facility]..#: [id number] Admission: 10/18/19 Attend Phys: Emerita Cordero Discharge: Date of : 40 Report #: [id number] THIS REPORT FOR: cc: Sabine Rea MD,Sabine Cordero,Emerita AGOSTO ~ CC: Emerita Rea DATE OF SERVICE: 10/18/2019 CHIEF COMPLAINT: Axial back pain and bilateral lower extremity pain. HISTORY OF PRESENT ILLNESS: This is a 79-year-old gentleman who returns to the pain clinic today for refill of his medications that he uses to help treat his ongoing low back pain and occasional knee pain. Today, he reports his pain score 4/10. He states he is doing quite well on his current regimen, having just an aching feeling across his lower back that does not radiate into his legs presently. It is worse with movement and bending. He feels that the heat and medication have been very beneficial. He denies any problems with constipation. He states in fact, the last 3 weeks, he has had significant bowel issues, thought he had the touch of the flu. He had needed to cancel his appointment last week due to this problem, but he feels like he is finally feeling better. Today, he would like refills of all of his medications. ALLERGIES: TAPE and PENICILLIN. CURRENT LIST OF MEDICATIONS: Vitamin C, vitamin B12, Bactrim, Flonase, amiodarone, spironolactone, lisinopril, hydrocodone 5/325 p.r.n., duloxetine 30 mg daily, fentanyl patch 12 mcg daily, metoprolol, pravastatin, Eliquis, Colace, fish oil, vitamin D3, lactobacillus, aspirin, potassium, and Prevacid. PQRS: 1. He has known arthritic changes in his cervical and lumbar spine as well as his hips and knees. Denies any rheumatoid arthritis. 2. Height is 6 feet 3 inches. 3. Weight is 239, BMI is 29. 4. Vital signs 139/79, pulse is 79, respirations 16, oxygen sat is 99. 5. Pain score is 4/10. 6. Denies dizziness, does not need help walking or standing, has not fallen in the last 3 months. 7. The patient is on Eliquis as well as medicines for hypertension. 8. Opiate therapy is greater than 6 weeks; therefore, an opioid signed contract is on the chart. Risk assessment tool is low. Functional assessment is 37/70. 9. Recreational drug use, he denies. He is not a smoker and [place] [address] PAIN MANAGEMENT CONSULTATION Name: YESSISEBASTIENELÍAS LARIOS Room #: REG [facility]#: [id number] Admission: 10/18/19 Attend Phys: Emerita Cordero Discharge: Date of : 40 Report #: [id number] According to the prescription monitoring system, the patient is filling his medicines appropriately according to the CDC guidelines. His morphine mEq per day is 38 morphine mEq per day, well under the CDC guidelines. There is a recent drug screen on the chart that is appropriate as well. PHYSICAL EXAMINATION: GENERAL: This is alert and orientated, well-developed, well-nourished 79-year-old male who appears his stated age, placing his current pain score today at 4/10. HEENT: Normocephalic, atraumatic. Extraocular eye muscles are intact. Mucous membranes are moist. EXTREMITIES: No clubbing, no cyanosis, no edema. MUSCULOSKELETAL: He has pain in his lumbar spine with modified Gaenslen's positive for axial low back pain. Supine straight leg raising is negative. Seated straight leg raising is negative. Lower extremity strength judged to be 5/5 in all major muscle groups. He does have a slow antalgic gait. ASSESSMENT: 1. Lumbosacral spondylosis without radiculopathy. 2. Facet arthroscopy of the lumbar spine. 3. Degeneration of the lumbar spine. 4. Chronic axial back pain. 5. Chronic intractable pain. 6. Management of high risk medications under terms of written opioid agreement. We reviewed the fact that opiate medications are being used to provide analgesia adequate to support activities of daily living, not attempting to achieve a specific pain score on the 0-10 Visual Analog Scale. The current opiate medications are providing sufficient analgesia to allow the patient to participate in activities of daily living. The patient is not exhibiting any aberrant behavior suggestive of drug diversion. The patient is not having any adverse reactions to medications. The patient is not suffering from daytime somnolence or mental acuity changes. The patient is managing opiate-induced constipation with appropriate iyog-zec-axvlicp agents and dietary considerations. The patient was counseled on concern for caution with operating a motor vehicle while using opiate medications. PLAN: 1. We discussed treatment options with the patient today. The patient reports he is doing quite well on his current medication regimen as well as his periodic injections. He would like a refill of his fentanyl patch and hydrocodone today. Dr. Elías Cruz will electronically scribe his 12 mcg patch for 10 patches for a total of 3 months and hydrocodone 5/325, #60 for 3 months. 2. I will send Cymbalta 30 mg once a day with 2 additional refills to his pharmacy as well. [facility] [address] [place] [address] PAIN MANAGEMENT CONSULTATION Name: ELÍAS DAVIS Room #: REG FRANCA Colindres#: [id number] Admission: 10/18/19 Attend Phys: Emerita Cordero Discharge: Date of : 40 Report #: [id number] 3. The patient will return in 3 months as needed for medications or earlier if he feels he needs another injection. 4. The patient is seen in collaboration with Dr. Elías Cruz. <ELECTRONICALLY SIGNED> By: Emerita Cordero 10/20/19 [id number] Emerita Cordero /nt
== END ==
LOC: PAIN 10-10 06:52
DX: M47.817 Spondylosis without myelopathy or radiculopathy, lumbosacral region (principal); M12.88 Other specific arthropathies, not elsewhere classified, other specified site; M51.36 Other intervertebral disc degeneration, lumbar region; G89.4 Chronic pain syndrome; Z79.891 Long term (current) use of opiate analgesic; Z79.899 Other long term (current) drug therapy

== ENCOUNTER → 2020-02-28 | Outpatient (CLI) | payer OTHER, MEDICARE ==
[~2020-02-28] VITALS: Ht 190.5 cm; Wt 110.0 kg
[2020-02-28 13:26] VITALS: BP 105/66
--- NOTE | 2020-02-28 13:35 | NUR ---
Pain Clinic Assessment: 1. History of Osteoarthritis: SPINE HIPS KNEES History of Rheumatoid Arthritis: Not Applicable 2. Height: 6 ft. 3 in. 190.5 cm. Weight: 242.6 lb. oz. 110.043 kg. Patient's BMI: 30.3 3. Vital Signs: BP: 105/66 Pulse: 68 Resp: 14 Temp: 02 Sat: 98 ECG Mon: 4. Pain Intensity: 7 5. Fall Risk: Dizziness: N Needs help standing or walking: N Fallen in the last 3 months: N Fall risk comments: 6. Patient on Blood Thinner: ELIQUIS 7. History of Hypertension: Y 8. Opioid Therapy greater than 6 weeks: Y Opiate Contract Signed: 03/25/16 9. Risk Assessment Tool Provided: LOW RISK 1 10. Functional Assessment Tool: 11. Recreational Drug Use: Never Drug Type: Tobacco Use: Never Smoker Tobacco Type: Amount or Packs/day: How Many Years: Alcohol Use: Past use Frequency: Quant:
--- NOTE | 2020-02-29 07:51 | HPC ---
[facility] [place] [address] PAIN MANAGEMENT CONSULTATION Name: YSESIAMINAELÍAS Room #: REG [facility]..#: [id number] Admission: 02/28/20 Attend Phys: Emerita Cordero Discharge: Date of : 40 Report #: [id number] THIS REPORT FOR: cc: Sabien Rea MD,Sabine Cordero,Emerita AGOSTO ~ CC: Elías Cruz DO DATE OF SERVICE: 02/28/2020 CHIEF COMPLAINT: Axial back pain and bilateral lower extremity pain. HISTORY OF PRESENT ILLNESS: This is a 79-year-old gentleman who returns to the pain clinic today for refill of his medications. He is well known to the pain clinic and has had numerous injections by Dr. Elías Cruz. Today, he is reporting his pain score in his lower back and his knees at 7/10. This is elevated from his average of 4/10. It is a constant, aching pain, worse with movement and bending. He reports that he has been using his fentanyl patches though he has been wearing them for 96 hours (4 days) during this COVID outbreak as he was afraid to come to the clinic. He has been staying at home for the last 4 months, ordering their groceries online. Today, he is wearing a mask and gloves for our visit. He does believe that his medications are beneficial, especially when he does wear the patch every 72 hours. He denies problems with constipation or daytime somnolence. ALLERGIES: TAPE, PENICILLIN. CURRENT LIST OF MEDICATIONS: Hydrocodone 5/325, fentanyl patch 12 mcg, Cymbalta 30 mg, ascorbic acid, vitamin B, amiodarone, spironolactone, lisinopril, metoprolol, pravastatin, Eliquis, Colace, fish oil, vitamin D, Lasix, lactobacillus, aspirin, potassium, and Prevacid. PQRS: 1. He has osteoarthritis in his spine, hips and knees. Denies any rheumatoid arthritis. 2. Height is 6 feet 3 inches, weight is 242, BMI is 30. Vital signs 105/66, pulse is 68, respirations 14, and oxygen sat is 98%. 3. Pain score is 7/10. 4. Denies dizziness, does not need help walking or standing, has not fallen in the last 3 months. 5. The patient is on Eliquis as well as medicines for hypertension. Opioid therapy is greater than 6 weeks; therefore, an opioid signed contract is on the chart. Risk assessment tool is low. Functional assessment is 37/70. 6. Recreational drug use, he denies. He is not a smoker and does not drink alcohol. [address] [address] PAIN MANAGEMENT CONSULTATION Name: ELÍAS DAVIS BONITA Room #: REG FRANCA Colindres#: [id number] Admission: 02/28/20 Attend Phys: Emerita Cordero Discharge: Date of : 40 Report #: [id number] According to the prescription monitoring system, the patient last filled 01/14/2020 for his medications. His morphine milliequivalent according to the CDC guidelines is under 50 MMEs, therefore, he is seen every 3 months in our clinic. There is a drug screen on the chart and we will collect a random specimen at his next appointment. PHYSICAL EXAMINATION: GENERAL: This is an alert and orientated, well-developed, well-nourished 79-year-old gentleman who appears his stated age, placing his current pain score at 7/10. His speech is fluent. HEENT: Normocephalic, atraumatic. He is wearing a mask. EXTREMITIES: No clubbing, no cyanosis, no edema. MUSCULOSKELETAL: He has pain in the lumbar spine with modified Gaenslen's positive for axial back pain. Supine straight leg raising is negative. Lower extremity strength judged to be 5/5 in all major muscle groups. ASSESSMENT: 1. Lumbosacral spondylosis without radiculopathy. 2. Facet arthroscopy of the lumbar spine. 3. Degeneration of the lumbar spine. 4. Chronic axial back pain. 5. Chronic intractable pain. 6. Management of high risk medications under terms of written opioid agreement. We reviewed the fact that opiate medications are being used to provide analgesia adequate to support activities of daily living, not attempting to achieve a specific pain score on the 0-10 Visual Analog Scale. The current opiate medications are providing sufficient analgesia to allow the patient to participate in activities of daily living. The patient is not exhibiting any aberrant behavior suggestive of drug diversion. The patient is not having any adverse reactions to medications. The patient is not suffering from daytime somnolence or mental acuity changes. The patient is managing opiate-induced constipation with appropriate nkbm-kur-ekxjcei agents and dietary considerations. The patient was counseled on concern for caution with operating a motor vehicle while using opiate medications. A physical exam was performed and the patient's functional status was evaluated. All patients with back pain were advised against the bed rest greater than 4 days and were advised to return to normal activities. Pain score assessment was noted and the treatment plan was reviewed with the patient. All current medications, both prescribed and OTC were reviewed and reconciled on the electronic medical record. Tobacco screening was accomplished and smoking cessation was advised when indicated. BMI was noted and diet/exercise modification was recommended for all patients following outside normal parameters. [address] [place] [address] PAIN MANAGEMENT CONSULTATION Name: ELÍAS DAVIS Room #: REG [facility].#: [id number] Admission: 02/28/20 Attend Phys: Emerita SURENDRA Cordero Discharge: Date of : 40 Report #: [id number] I reviewed with the patient today their responsibilities to safeguard prescription medications, reviewed their responsibility to utilize medications only as prescribed by the physician. They are to seek and receive pain medications only from 1 physician group ( [facility]). They are to use 1 pharmacy and keep the clinic informed if they change pharmacies. Their responsibilities include making followup visits in a timely fashion and to avoid abrupt discontinuation of medication usage. Their responsibilities further include bringing their medications (bottles from the pharmacy with residual pills) to the visit for possible confirmation of pill counts and the patient understands it is their responsibility to submit to random drug screens to ensure both that the medications prescribed are present, and that no other controlled substances are present. All prescriptions provided today were generated electronically. PLAN: 1. We discussed treatment options with the patient today. We encouraged the patient to resume his fentanyl patch every 72 hours, that is how it is most beneficial as directed by the pharmaceutical company. The patient's pain score has significantly increased since he has been wearing the patch every 4 days. The patient verbalizes understanding. He will start wearing his patch every 72 hours as he has in the past with this new fill. He believes it is safer now to be out than it had been due to the COVID virus. 2. The patient also finds his hydrocodone beneficial. We will have Dr. Elías Cruz send electronically his fentanyl 12 mcg patch #10 for today, for 4 8-week as well as hydrocodone 5/325, #60 for today 4 an 8-week. 3. The patient finds the Cymbalta very beneficial. He calls it "his happy pill." We will refill this for 30 mg tablets, quantity 30 with 2 additional refills. 4. The patient is seen in collaboration with Dr. Elías Cruz. <ELECTRONICALLY SIGNED> By: Emerita Cordero 02/29/20 [id number] Emerita Cordero /nt
== END ==
LOC: PAIN 12-26 12:02
PROVIDERS: ATTEND Clinical Nurse Specialist Adult Health
DX: M47.817 Spondylosis without myelopathy or radiculopathy, lumbosacral region (principal); M51.36 Other intervertebral disc degeneration, lumbar region; G89.4 Chronic pain syndrome; Z79.891 Long term (current) use of opiate analgesic

== ENCOUNTER → 2020-05-28 | Outpatient (CLI) | payer OTHER, MEDICARE ==
[~2020-05-28] VITALS: Ht 190.5 cm; Wt 111.3 kg
[2020-05-28 10:46] VITALS: BP 119/75
--- NOTE | 2020-05-28 11:02 | NUR ---
Pain Clinic Assessment: 1. History of Osteoarthritis: SPINE HIPS KNEES History of Rheumatoid Arthritis: Not Applicable 2. Height: 6 ft. 3 in. 190.5 cm. Weight: 245.4 lb. oz. 111.313 kg. Patient's BMI: 30.7 3. Vital Signs: BP: 119/75 Pulse: 81 Resp: 14 Temp: 02 Sat: 100 ECG Mon: 4. Pain Intensity: 7 5. Fall Risk: Dizziness: N Needs help standing or walking: N Fallen in the last 3 months: N Fall risk comments: 6. Patient on Blood Thinner: ELIQUIS 7. History of Hypertension: Y 8. Opioid Therapy greater than 6 weeks: Y Opiate Contract Signed: 03/25/16 9. Risk Assessment Tool Provided: LOW RISK 1 10. Functional Assessment Tool: 11. Recreational Drug Use: Never Drug Type: Tobacco Use: Never Smoker Tobacco Type: Amount or Packs/day: How Many Years: Alcohol Use: Past use Frequency: Quant:
--- NOTE | 2020-05-29 11:09 | HPC ---
[facility] [address] [place] [address] PAIN MANAGEMENT CONSULTATION Name: YESSISEBASTIENELÍAS LARIOS Room #: REG [facility]..#: [id number] Admission: 05/28/20 Attend Phys: Emerita Cordero Discharge: Date of : 40 Report #: [id number] CC: Emerita Cruz DO DATE OF SERVICE: 05/28/2020 CHIEF COMPLAINT: Axial back pain and bilateral extremity pain. HISTORY OF PRESENT ILLNESS: This is a 79-year-old gentleman who returns to the pain clinic today for refill of his medications. He feels that they are beneficial in helping reduce his pain, though he does complain of multiple pain generators in his back, hips, shoulders and feet. Feels at times different areas are more painful than others. Today, he rates his pain as 7/10. It is a constant, aching pain, worse with movement and bending and sometimes sleep. He feels that his medications as well as using heat and some Voltaren gel have been beneficial. He denies problems with significant constipation or daytime somnolence as a result of his medications. ALLERGIES: TAPE AND PENICILLIN. CURRENT LIST OF MEDICATIONS: Cymbalta 30 mg daily, hydrocodone 5/325 p.r.n., fentanyl 12 mcg every 72 hours, ascorbic acid, vitamin B12, Flonase, amiodarone, spironolactone, lisinopril, Benadryl, metoprolol, pravastatin, Eliquis, Colace, vitamin D, Lasix, lactobacillus, aspirin, potassium, and Prevacid. PQRS: 1. He has osteoarthritic changes in his spine, knees and hips. Denies any rheumatoid arthritis. 2. Height is 6 feet 3 inches, weight is 245, BMI is 30. 3. Vital signs; blood pressure 119/75, pulse is 81, respirations 14, and oxygen sat is 100%. 4. Pain score 7/10. 5. Fall risk. Denies dizziness, does not need help walking or standing, has not fallen in the last 3 months. 6. He is on Eliquis and does take medicines for hypertension. 7. His opioid therapy is greater than 6 weeks; therefore, an opioid signed contract is on the chart. Risk assessment is low. Functional assessment is 37/70. 8. Recreational drug use, he denies. He is not a smoker and does not drink alcohol. According to the prescription monitoring system, the patient is filling appropriately of his opioid medications in a timely fashion. His morphine milliequivalent is 35 MME or below. We will check a random drug screen on this patient today. PHYSICAL EXAMINATION: GENERAL: This is alert and orientated, well-developed, well-nourished 79-year-old gentleman who appears his stated age. His speech is fluent. He is a good historian, placing his pain score at 7/10 today. HEENT: Normocephalic, atraumatic. Extraocular eye muscles are intact. Mucous membranes are moist. He is wearing a mask. EXTREMITIES: No clubbing, no cyanosis, no edema. MUSCULOSKELETAL: Lower extremity strength appears symmetrical at 5/5, intact to light touch from L1 through S2 dermatomes. Seated straight leg raising is negative. Kathy's test is negative. Modified Gaenslen's positive for axial low back pain. Lumbar provocation testing is met with increasing pain and mild restrictions of motion. Pain is elicited with all maneuvers. ASSESSMENT: 1. Lumbosacral spondylosis without radiculopathy. 2. Facet arthroscopy of the lumbar spine. 3. Degeneration of the lumbar spine. 4. Chronic axial back pain. 5. Management of high risk medications under terms of written opioid agreement. We reviewed the fact that opiate medications are being used to provide analgesia adequate to support activities of daily living, not attempting to achieve a specific pain score on the 0-10 Visual Analog Scale. The current opiate medications are providing sufficient analgesia to allow the patient to participate in activities of daily living. The patient is not exhibiting any aberrant behavior suggestive of drug diversion. The patient is not having any adverse reactions to medications. The patient is not suffering from daytime somnolence or mental acuity changes. The patient is managing opiate-induced constipation with appropriate mwwf-wco-tuxvhsi agents and dietary considerations. The patient was counseled on concern for caution with operating a motor vehicle while using opiate medications. A physical exam was performed and the patient's functional status was evaluated. All patients with back pain were advised against the bed rest greater than 4 days and were advised to return to normal activities. Pain score assessment was noted and the treatment plan was reviewed with the patient. All current medications, both prescribed and OTC were reviewed and reconciled on the electronic medical record. Tobacco screening was accomplished and smoking cessation was advised when indicated. BMI was noted and diet/exercise modification was recommended for all patients following outside normal parameters. I reviewed with the patient today their responsibilities to safeguard prescription medications, reviewed their responsibility to utilize medications only as prescribed by the physician. They are to seek and receive pain medications only from 1 physician group ( [facility]). They are to use 1 pharmacy and keep the clinic informed if they change pharmacies. Their responsibilities include making followup visits in a timely fashion and to avoid abrupt discontinuation of medication usage. Their responsibilities further include bringing their medications (bottles from the pharmacy with residual pills) to the visit for possible confirmation of pill counts and the patient understands it is their responsibility to submit to random drug screens to ensure both that the medications prescribed are present, and that no other controlled substances are present. All prescriptions provided today were generated electronically. PLAN: 1. We discussed treatment options with the patient today. The patient finds his medication regimen very beneficial. He states he has been not as active as he had before [facility]. He has been staying home with his . He does venture out and do some projects in his yard, but otherwise he is fairly sedentary currently, but his pain is well controlled. We will have Dr. Elías Cruz send electronically his fentanyl 12 mcg patch #10 for today and 4-week supply as well as his hydrocodone 5/325, #60 for 2 months as well. 2. I will send his duloxetine 30 mg, #30 with 5 additional refills. 3. We did talk about utilizing his Voltaren gel at least twice a day in the morning and at bedtime. I know that it is difficult once he has cloths on to reach some of his joints, but see if it is beneficial by at least using the medication twice daily. He is unable to take oral anti-inflammatories due to his Eliquis. 4. We will collect a random drug screen on this patient today. The patient was seen in collaboration with Dr. Elías Cruz. <ELECTRONICALLY SIGNED> By: Emerita Cordero 05/29/20 [id number] Emerita Cordero /nt
== END ==
LOC: PAIN 06:52
PROVIDERS: ATTEND Clinical Nurse Specialist Adult Health
DX: M47.817 Spondylosis without myelopathy or radiculopathy, lumbosacral region (principal); M51.36 Other intervertebral disc degeneration, lumbar region; G89.29 Other chronic pain; F11.20 Opioid dependence, uncomplicated

== ENCOUNTER → 2020-08-21 | Outpatient (CLI) | payer OTHER, MEDICARE ==
[~2020-08-21] VITALS: Ht 190.5 cm; Wt 69.4 kg
--- NOTE | ~2020-08-21 | HPC ---
[facility] [address] [place] [address] PAIN MANAGEMENT CONSULTATION Name: ELÍAS DAVIS Room #: REG [facility]..#: [id number] Admission: 08/21/20 Attend Phys: Emerita Cordero Discharge: Date of : 40 Report #: [id number] THIS REPORT FOR: cc: Sabine Rea MD,Sabine Cordero,Emerita Longoria DATE OF SERVICE: 08/21/2020 CHIEF COMPLAINT: Axial back pain and bilateral extremity pain. HISTORY OF PRESENT ILLNESS: This is a pleasant 80-year-old gentleman who returns to the clinic today for refill of his fentanyl patch and hydrocodone. He takes these medications to help alleviate his low back pain and finds it beneficial. Today, he is reporting increased pain at 7/10. He believes it is due to the cold weather. His joints have been aching the past few days, especially his bilateral knees and hips. He does also have pain that affects his feet and shoulders that he reports is a chronic constant, aching discomfort that is worse with activity and bending over and worse in the morning. Overall, he feels the medication as well as heat has been beneficial in reducing his pain. He denies significant constipation from his opioids and does take Colace on a regular basis. ALLERGIES: TAPE AND PENICILLIN. CURRENT LIST OF MEDICATIONS: Hydrocodone 5/325 p.r.n., fentanyl 12 mcg every 72 hours, ascorbic acid, vitamin B, Flonase, amiodarone, spironolactone, lisinopril, Benadryl, metoprolol, pravastatin, Eliquis, vitamin D, Lasix, lactobacillus, aspirin, potassium, Prevacid, Cymbalta 30 mg. PQRS: 1. He has osteoarthritic changes in his spine, knees and hips. Denies any rheumatoid arthritis. 2. Height is 6 feet 3 inches, weight is 253. Vital signs are 123/79, pulse is 78, respirations 16, oxygen sat is 100. 3. Pain score is 7/10. 4. Denies dizziness, does not need help walking or standing, has not fallen in the last 3 months. 5. The patient is on Eliquis as well as medications for hypertension. His opioid therapy is greater than 6 weeks; therefore, an opioid signed contract is on the chart. 6. Risk assessment is low. Functional assessment is 37/70. 7. Recreational drug use, he denies. He is not a smoker and does not drink alcohol. According to the prescription monitoring system, he is filling appropriately. He is due to fill his medications this weekend. His morphine mEq is 40 MME per [address] [address] PAIN MANAGEMENT CONSULTATION Name: ELÍAS DAVIS Room #: REG CL [facility].#: [id number] Admission: 08/21/20 Attend Phys: Emerita Cordero Discharge: Date of : 40 Report #: [id number] day. We did check a random drug screen at his last visit that was appropriate for his medication. PHYSICAL EXAMINATION: GENERAL: This is alert and orientated, pleasant 80-year-old gentleman who appears his stated age, placing his current pain score at 7/10. His speech is fluent and he is a good historian. HEENT: Normocephalic, atraumatic. Extraocular eye muscles are intact. He is wearing a mask. EXTREMITIES: No clubbing, no cyanosis, no edema. MUSCULOSKELETAL: He has tenderness in his bilateral knees, greater on the left with no edema noted. Lower extremity strength is symmetrical at 5/5 with good sensation from L1-S2. Seated straight leg raising is negative. Modified Gaenslen is positive for axial low back pain and lumbar provocation testing does increase his pain in his lower back. He has slightly antalgic gait. ASSESSMENT: 1. Lumbosacral spondylosis without radiculopathy. 2. Facet arthroscopy of the lumbar spine. 3. Degeneration of the lumbar spine. 4. Chronic axial back pain. 5. Management of high risk medications under terms of written opioid agreement. PLAN: 1. We discussed treatment options with the patient today. He feels the medication is beneficial in keeping him as active as he is able with minimal side effects. He would like renewal of those medications. We will have Dr. Elías Cruz send his fentanyl 12 mcg, #10 for today and 4-week and 8-week supply to his pharmacy as well as hydrocodone 5/325, #60 for 3 months as well. 2. The patient continues his Cymbalta and does feel that is beneficial in helping with his depression as well as his neuropathic pain in his feet. No scripts needed today. He does continue his Voltaren gel, which he is buying [id number] using it on his arthritic hips and knees and finds this beneficial since he is unable to take any oral anti-inflammatories. 3. The patient will return in 3 months. The patient is seen today in collaboration with Dr. Elías Cruz. By: [id number] Emerita Cordero /elmer
[2020-08-21 12:40] VITALS: BP 123/79
--- NOTE | 2020-08-21 12:42 | NUR ---
Pain Clinic Assessment: 1. History of Osteoarthritis: SPINE HIPS KNEES History of Rheumatoid Arthritis: Not Applicable 2. Height: 6 ft. 3 in. 190.5 cm. Weight: 153.0 lb. oz. 69.400 kg. Patient's BMI: 19.1 3. Vital Signs: BP: 123/79 Pulse: 78 Resp: 16 Temp: 02 Sat: 100 ECG Mon: 4. Pain Intensity: 7 5. Fall Risk: Dizziness: N Needs help standing or walking: N Fallen in the last 3 months: N Fall risk comments: 6. Patient on Blood Thinner: ELIQUIS 7. History of Hypertension: Y 8. Opioid Therapy greater than 6 weeks: Y Opiate Contract Signed: 03/25/16 9. Risk Assessment Tool Provided: LOW RISK 1 10. Functional Assessment Tool: 11. Recreational Drug Use: Never Drug Type: Tobacco Use: Never Smoker Tobacco Type: Amount or Packs/day: How Many Years: Alcohol Use: Past use Frequency: Quant:
== END ==
LOC: PAIN 06:51
PROVIDERS: ATTEND Clinical Nurse Specialist Adult Health
DX: M47.27 Other spondylosis with radiculopathy, lumbosacral region (principal); M51.16 Intervertebral disc disorders with radiculopathy, lumbar region; G89.29 Other chronic pain; Z79.891 Long term (current) use of opiate analgesic

== ENCOUNTER → 2020-11-19 | Outpatient (CLI) | payer OTHER, MEDICARE ==
[~2020-11-19] VITALS: Ht 190.5 cm; Wt 115.5 kg
[2020-11-19 08:34] VITALS: BP 116/74
--- NOTE | 2020-11-19 08:42 | NUR ---
Pain Clinic Assessment: 1. History of Osteoarthritis: SPINE HIPS KNEES History of Rheumatoid Arthritis: Not Applicable 2. Height: 6 ft. 3 in. 190.5 cm. Weight: 254.6 lb. oz. 115.486 kg. Patient's BMI: 31.8 3. Vital Signs: BP: 116/74 Pulse: 73 Resp: 16 Temp: 02 Sat: 97 ECG Mon: 4. Pain Intensity: 8 5. Fall Risk: Dizziness: N Needs help standing or walking: N Fallen in the last 3 months: N Fall risk comments: 6. Patient on Blood Thinner: ELIQUIS 7. History of Hypertension: Y 8. Opioid Therapy greater than 6 weeks: Y Opiate Contract Signed: 03/25/16 9. Risk Assessment Tool Provided: LOW RISK 1 10. Functional Assessment Tool: 11. Recreational Drug Use: Never Drug Type: Tobacco Use: Never Smoker Tobacco Type: Amount or Packs/day: How Many Years: Alcohol Use: Past use Frequency: Quant:
--- NOTE | 2020-11-20 09:22 | HPC ---
[facility] [place] [address] PAIN MANAGEMENT CONSULTATION Name: YESSIAMINAELÍAS Room #: REG [facility].#: [id number] Admission: 11/19/20 Attend Phys: Elías Cruz DO Discharge: Date of : 40 Report #: [id number] THIS REPORT FOR: cc: Sabine Rea MD,Elías Du MD, DO ~ DATE OF SERVICE: 11/19/2020 REFERRING PHYSICIAN: Rupinder Taylor CHIEF COMPLAINT: Axial back pain, bilateral lower extremity pain. HISTORY OF PRESENT ILLNESS: As you know, the patient is a very pleasant 80-year-old male returning in followup visit for continuation of medication management. Despite the fact the patient is taking fentanyl and hydrocodone, he is reporting a pain score of 8/10 today. He states this is a standard pain score, but this does not tend to interfere with his daily activities to any great degree. He is denying side effects to the medication, returning today in followup visit requesting refills. He states no dysphoric effects, no constipation issues that cannot be resolved with mvhq-rqz-[id number] medication and the use of medications do allow him to go about his daily activities. He returns today in followup visit requesting the refill of medications at current dosing. ALLERGIES: ADHESIVE TAPE AND PENICILLIN. CURRENT MEDICATIONS: Fentanyl 12 mcg q. 72 hours, hydrocodone 5/325 b.i.d. p.r.n. pain, duloxetine 30 mg p.o. daily, ascorbic acid 1000 mg a day, cyanocobalamin 1000 mcg per day, fluticasone 1 spray each nostril per day, amiodarone 100 mg once a day, spironolactone 25 mg per day, lisinopril 2.5 mg once a day, diphenhydramine 25 mg p.o. at bedtime, metoprolol 25 mg per day, pravastatin 40 mg per day, Eliquis 5 mg b.i.d., Colace 100 mg once a day, cholecalciferol 400 units once a day, furosemide 40 mg per day, nitroglycerin p.r.n., lactobacillus 1 tab per day, aspirin 81 mg per day, potassium chloride 10 mEq p.o. daily, lansoprazole 30 mg per day. SOCIAL HISTORY: The patient denies tobacco, alcohol, IV or illicit drug use. 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 He is unaccompanied at today's visit. PQRS: The patient has known arthritic changes of the cervical spine, lumbar spine, bilateral hips and knees. No rheumatoid arthritis. He is placing pain intensity at 8/10, not a fall risk, has not had a fall in last 3 months. He is on blood thinners in the form of Eliquis and takes that on a b.i.d. basis. He is treated for hypertension. He is on chronic opioids, has a low opioid addiction potential based on assessment tool. Pain impact is 37/70, moderate interference of daily activities secondary to pain. [address] [address] PAIN MANAGEMENT CONSULTATION Name: ELÍAS DAVIS Room #: REG [facility]#: [id number] Admission: 11/19/20 Attend Phys: Elías Cruz DO Discharge: Date of : 40 Report #: [id number] PHYSICAL EXAMINATION: VITAL SIGNS: Blood pressure 116/74, pulse 73, respiratory rate 16 and unlabored. The patient is 97% on room air, height 6 feet 3 inches tall, weight 254.6 pounds, BMI calculated 31.8. GENERAL: Well-developed, well-nourished, well-hydrated 80-year-old male. He appears stated age, placing current pain score at 8/10. HEENT: Normocephalic, atraumatic. Pupils are round and responsive. The patient is wearing a mask in compliance with COVID-19 regulations. EXTREMITIES: Show no clubbing, no cyanosis. No appreciable edema. MUSCULOSKELETAL: The patient remains tender to palpation of the lower lumbar spine, axial in nature. Deep palpation in the area on the right causes intensification of pain, negative SI joint findings. Seated straight leg raising negative. Supine straight leg raising negative. Kathy's test is negative. Modified Gaenslen's positive for axial low back pain. There is well-healed surgical scar of the lumbar region. ASSESSMENT: 1. Lumbosacral spondylosis without current radiculopathy. 2. Facet arthropathy of the lumbar spine. 3. Lumbar degeneration of the lumbar spine. 4. Chronic intractable pain. PLAN: 1. The patient returns today in followup visit requesting refill on medications. He is denying side effects of sleepiness, disorientation, confusion, mental slowing or constipation with use of therapy. He has noted some increase in pain over the past couple of weeks with very variable weather conditions, but this has begun to improve now that the temperature has warmed. This appears to be related to osteoarthritic changes consistent with his age and the findings of recent imaging. As for his chronic low back pain, I do feel the exacerbation is due to increasing arthritic changes and the effects of weather on those arthritic changes and thus his symptoms have intensified. He is able to alleviate these symptoms with topical agents such as Voltaren opioid medications provided through our services. At this point, even though the patient is reporting a pain score of 8/10, he does not wish any changes in therapy. He has requested the refills to be provided today. We reviewed the fact that opiate medications are being used to provide analgesia adequate to support activities of daily living, not attempting to achieve a specific pain score on the 0-10 Visual Analog Scale. The current opiate medications are providing sufficient analgesia to allow the patient to participate in activities of daily living. The patient is not exhibiting any aberrant behavior suggestive of drug diversion. The patient is not having any adverse reactions to medications. The patient is not suffering from daytime somnolence or mental acuity changes. The patient is managing opiate-induced [facility] [address] [place] [address] PAIN MANAGEMENT CONSULTATION Name: ELÍAS DAVIS Room #: REG [facility].#: [id number] Admission: 11/19/20 Attend Phys: Elías Cruz DO Discharge: Date of : 40 Report #: [id number] constipation with appropriate khpa-oov-hjtfrkg agents and dietary considerations. The patient was counseled on concern for caution with operating a motor vehicle while using opiate medications. A physical exam was performed and the patient's functional status was evaluated. All patients with back pain were advised against the bed rest greater than 4 days and were advised to return to normal activities. Pain score assessment was noted and the treatment plan was reviewed with the patient. All current medications, both prescribed and OTC were reviewed and reconciled on the electronic medical record. Tobacco screening was accomplished and smoking cessation was advised when indicated. BMI was noted and diet/exercise modification was recommended for all patients following outside normal parameters. I reviewed with the patient today their responsibilities to safeguard prescription medications, reviewed their responsibility to utilize medications only as prescribed by the physician. They are to seek and receive pain medications only from 1 physician group ([facility]). They are to use 1 pharmacy and keep the clinic informed if they change pharmacies. Their responsibilities include making followup visits in a timely fashion and to avoid abrupt discontinuation of medication usage. Their responsibilities further include bringing their medications (bottles from the pharmacy with residual pills) to the visit for possible confirmation of pill counts and the patient understands it is their responsibility to submit to random drug screens to ensure both that the medications prescribed are present, and that no other controlled substances are present. All prescriptions provided today were generated electronically. 2. The patient was provided a prescription of fentanyl 12 mcg patch 1 patch q. 72 hours. I have given the patient #10 patches releasing today, 4 weeks from today, 8 weeks from today, 3 months' worth of medication. All prescriptions provided to the patient in written form as our digital system did not allow for sending of those prescriptions today. 3. The patient was provided a prescription of hydrocodone 5/325 one tab p.o. q. 12 hours p.r.n. for pain. I have given the patient #60 tablets to release today, 4 weeks from today and 8 weeks from today, 3 months' worth of medication. All prescriptions provided to this patient in written form as digital prescription was unavailable to us today. 4. The patient was provided a refill prescription of Cymbalta 30 mg dose 1 tab p.o. every day. I have given the patient #30 tablets with multiple refills. He will remain on this medication as it is adding adjunctive treatment to his chronic pain therapy. 5. We will see the patient back in followup visit in 3 months for medication [facility] [address] [place] [address] PAIN MANAGEMENT CONSULTATION Name: ELÍAS DAVIS Room #: REG [facility] RenaeDavid#: [id number] Admission: 11/19/20 Attend Phys: Elías Cruz DO Discharge: Date of : 40 Report #: [id number] management, earlier if adjustments need to be addressed or he wishes to look towards interventional treatments. <ELECTRONICALLY SIGNED> By: Elías Cruz DO 11/20/20 0922 [id number] Elías Cruz DO /nt
== END ==
LOC: PAIN 06:49
PROVIDERS: ATTEND Anesthesiology Pain Medicine
DX: M47.27 Other spondylosis with radiculopathy, lumbosacral region (principal); M51.36 Other intervertebral disc degeneration, lumbar region; G89.29 Other chronic pain; M79.605 Pain in left leg; M79.604 Pain in right leg; Z88.8 Allergy status to other drugs, medicaments and biological substances; Z79.899 Other long term (current) drug therapy

== ENCOUNTER → 2021-03-05 | Outpatient (CLI) | payer OTHER, MEDICARE ==
[~2021-03-05] VITALS: Ht 190.5 cm; Wt 112.9 kg
[~2021-03-05] MED LIST changes: +CRESTOR20 MG PO
[2021-03-05 10:48] VITALS: BP 117/68
--- NOTE | 2021-03-05 10:54 | NUR ---
Pain Clinic Assessment: 1. History of Osteoarthritis: SPINE HIPS KNEES History of Rheumatoid Arthritis: Not Applicable 2. Height: 6 ft. 3 in. 190.5 cm. Weight: 249.0 lb. oz. 112.946 kg. Patient's BMI: 31.1 3. Vital Signs: BP: 117/68 Pulse: 67 Resp: 16 Temp: 02 Sat: 96 ECG Mon: 4. Pain Intensity: 7 5. Fall Risk: Dizziness: N Needs help standing or walking: N Fallen in the last 3 months: N Fall risk comments: 6. Patient on Blood Thinner: ELIQUIS 7. History of Hypertension: Y 8. Opioid Therapy greater than 6 weeks: Y Opiate Contract Signed: 03/25/16 9. Risk Assessment Tool Provided: LOW RISK 1 10. Functional Assessment Tool: 11. Recreational Drug Use: Never Drug Type: Tobacco Use: Never Smoker Tobacco Type: Amount or Packs/day: How Many Years: Alcohol Use: Past use Frequency: Quant:
--- NOTE | 2021-03-06 08:40 | HPC ---
[facility] [address] [address] PAIN MANAGEMENT CONSULTATION Name: ELÍAS DAVIS Room #: REG [facility]..#: [id number] Admission: 03/05/21 Attend Phys: Emerita Cordero Discharge: Date of : 40 Report #: [id number] THIS REPORT FOR: cc: Sabine Rea MD,Sabine Cordero,Emerita AGOSTO ~ cc: Sabine Rea MD, Elías Cruz, DATE OF SERVICE: 03/05/2021 CHIEF COMPLAINT: Axial back pain, bilateral lower extremity pain. HISTORY OF PRESENT ILLNESS: This is an 80-year-old gentleman who returns to the pain clinic today for renewal of his medication. Today, he is reporting a pain score of 7/10, which is his typical pain score. He reports that most of his pain is in his low back and his right hip as well as his bilateral knees. Today, he is reporting that his knees have been more problematic recently. He is using a walking stick and recently started wearing copper sleeves on his knees bilaterally. The patient reports that his pain is mostly worse with movement, bending and sleeping. He believes that heat and his medications are beneficial. He is wearing his fentanyl patch today. The patient reports that he has recently started a new cholesterol medication, Crestor, taking him off his pravastatin. He is unsure of his pain has changed since starting this medication in his joints. ALLERGIES: TAPE, PENICILLIN. CURRENT LIST OF MEDICATIONS: Hydrocodone 5/325 p.r.n., fentanyl 12 mcg every 72 hours, Crestor, Cymbalta, vitamin C, vitamin D, Flonase, amiodarone, spironolactone, lisinopril, Toprol, Eliquis, vitamin D, Colace, Lasix, probiotic, aspirin, potassium, and Prevacid. PQRS: 1. He has osteoarthritic changes in his spine, knees and hips. Denies any rheumatoid arthritis. Height is 6 feet 4, weight is 249. BMI is 31. 2. Vital signs 117/68, pulse is 67, respirations 16, oxygen sat is 96. 3. Pain score 7/10. 4. Denies dizziness. Does need assistance with ambulation using a walking stick has not fallen in the last 3 months. 5. The patient is on Eliquis as well as medication for hypertension. His opioid therapy is greater than 6 weeks; therefore, an opioid signed contract is on the chart. 6. Risk assessment is low. Functional assessment: 37/70. 7. Recreational drug use, he denies. He is not a smoker and used alcohol in the past. [address] [address] PAIN MANAGEMENT CONSULTATION Name: ELÍAS DAVIS Room #: REG CL M.R.#: [id number] Admission: 03/05/21 Attend Phys: Emerita Cordero Discharge: Date of : 40 Report #: [id number] According to the prescription monitoring system, he is filling appropriately. He is due to fill his medications next week. His morphine mEq according to the CDC guidelines 30 MME. There is a drug screen on the chart and we will repeat that at his next appointment. PHYSICAL EXAMINATION: GENERAL: This is alert and orientated, well hydrated, well developed 80-year-old gentleman who appears his stated age, rating his pain score today at 7/10. HEENT: Normocephalic, atraumatic. Pupils equal, round and reactive. He is wearing a mask. EXTREMITIES: No clubbing, no cyanosis, no edema. He has tenderness in his knees bilaterally, wearing sleeves on them, no edema noted. MUSCULOSKELETAL: He has tenderness in his lumbosacral region with positive modified Gaenslen's test for axial low back pain. He has well-healed surgical scars in his lumbar region. Pain in his right hip with ambulation. ASSESSMENT: 1. Lumbar sacral spondylosis without current radiculopathy. 2. Facet arthroscopy of the lumbar spine. 3. Lumbar degeneration of the lumbar spine. 4. Chronic intractable pain. 5. 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 6. Complicated medication management utilizing scheduled medications under written agreement. We reviewed the fact that opiate medications are being used to provide analgesia adequate to support activities of daily living, not attempting to achieve a specific pain score on the 0-10 Visual Analog Scale. The current opiate medications are providing sufficient analgesia to allow the patient to participate in activities of daily living. The patient is not exhibiting any aberrant behavior suggestive of drug diversion. The patient is not having any adverse reactions to medications. The patient is not suffering from daytime somnolence or mental acuity changes. The patient is managing opiate-induced constipation with appropriate temf-sls-pqiyrtm agents and dietary considerations. The patient was counseled on concern for caution with operating a motor vehicle while using opiate medications. PLAN: 1. We discussed treatment options with the patient today. The patient has been complaining of more bilateral knee pain. He has had his left knee totally replaced, but continues to have ongoing pain and now his right knee has become more problematic. He is wearing sleeves on the knees bilaterally. I encouraged the patient to talk to his sand digger since he has recently switched from pravastatin to Crestor. This medication is known to sometimes cause joint pain. I also reminded the patient if he needs an injection in his hip or knee, [facility] [address] [place] [address] PAIN MANAGEMENT CONSULTATION Name: ELÍAS DAVIS Room #: REG [facility] Bernadine#: [id number] Admission: 03/05/21 Attend Phys: Emerita Cordero Discharge: Date of : 40 Report #: [id number] Anthony could perform those for him, but he would need to be off his Eliquis. At this time, the patient is declining any injections and will continue on his medications. 2. We will continue him on his fentanyl 12 mcg patch #10 and hydrocodone 5/325 #60. These will be sent electronically by Dr. Elías Cruz for the next 3 months. 3. He does continue on her Cymbalta and finds this beneficial in helping with some depression as well as neuropathy. No script needed on this medication today. Time spent with the patient in consultation, reviewing pertinent imaging, reviewing recent studies and clinical notes, physical examination and correlation of findings and medical documentation to determine possible treatment options 16 minutes. Time spent and preparation for appointment reviewing prescription monitoring system, reviewing previous records and proposed treatment options, reviewing current medications, 5 minutes. Time spent preparing and sending electronic prescriptions with collaborating physician, Dr. Elías Cruz, documentation of visit and plan of treatment 5 minutes. Total time spent 26 minutes. <ELECTRONICALLY SIGNED> By: Emerita Cordero 03/06/21 0840 [id number] Emerita Cordero /elmer
== END ==
LOC: PAIN 08:54
PROVIDERS: ATTEND Clinical Nurse Specialist Adult Health
DX: M47.26 Other spondylosis with radiculopathy, lumbar region (principal); M51.16 Intervertebral disc disorders with radiculopathy, lumbar region; G89.4 Chronic pain syndrome; Z79.891 Long term (current) use of opiate analgesic; Z79.899 Other long term (current) drug therapy; Z88.0 Allergy status to penicillin

== ENCOUNTER → 2021-06-03 | Outpatient (CLI) | payer OTHER, MEDICARE ==
[~2021-06-03] VITALS: Ht 190.5 cm; Wt 111.9 kg
[~2021-06-03] MED LIST changes: +FENTANYL1 EAC7 TRANSDERM; +GENERLAC10 GM/15 M PO; +PRAVASTATIN SOD40 MG PO
[2021-06-03 11:28] VITALS: BP 107/67
--- NOTE | 2021-06-03 12:00 | NUR ---
Pain Clinic Assessment: 1. History of Osteoarthritis: SPINE HIPS KNEES History of Rheumatoid Arthritis: Not Applicable 2. Height: 6 ft. 3 in. 190.5 cm. Weight: 246.8 lb. oz. 111.948 kg. Patient's BMI: 30.8 3. Vital Signs: BP: 107/67 Pulse: 65 Resp: 14 Temp: 02 Sat: 97 ECG Mon: 4. Pain Intensity: 7 DAY 9 AT HS 5. Fall Risk: Dizziness: N Needs help standing or walking: N Fallen in the last 3 months: N Fall risk comments: 6. Patient on Blood Thinner: NILDA 7. History of Hypertension: Y 8. Opioid Therapy greater than 6 weeks: Y Opiate Contract Signed: 03/25/16 9. Risk Assessment Tool Provided: LOW RISK 1 10. Functional Assessment Tool: 11. Recreational Drug Use: Never Drug Type: Tobacco Use: Never Smoker Tobacco Type: Amount or Packs/day: How Many Years: Alcohol Use: Past use Frequency: Quant:
--- NOTE | 2021-06-04 08:04 | HPC ---
[facility] [address] [address] PAIN MANAGEMENT CONSULTATION Name: ELÍAS DAVIS Room #: REG [facility].#: [id number] Admission: 06/03/21 Attend Phys: Elías Cruz DO Discharge: Date of : 40 Report #: [id number] THIS REPORT FOR: cc: Sabine Rea MD,Elías Du MD, DO ~ cc: MELISSA Magallanes, Sabine Rea MD DATE OF SERVICE: 06/03/2021 CHIEF COMPLAINT: Axial back pain, bilateral lower extremity pain. HISTORY OF PRESENT ILLNESS: As you know, the patient is a very pleasant 80-year-old male returning in followup visit with ongoing low back pain, bilateral lower extremity pain with paresthesias. As you are aware, the patient has had longstanding history of osteoarthritic changes of the lumbar spine causing axial back pain, central canal and neural foraminal stenosis, which results in a classic lumbar radiculopathy. The patient has trialed various treatment options including radiofrequency lesioning medial branch nerves of the lumbar spine epidural injections and medication management. Each of which have provided good benefit. He returns today requesting refill on medications. He is also complaining of bilateral shoulder pain, which appears to be related to osteoarthritic changes. There is no definitive drop off signs that would be consistent with a new onset rotator cuff injuries. He returns to have a refill of medications provided and to discuss his bilateral shoulder pain. ALLERGIES: TAPE AND PENICILLIN. CURRENT MEDICATIONS: Hydrocodone, fentanyl, duloxetine, ascorbic acid, cyanocobalamin, fluticasone, amiodarone, spironolactone, lisinopril, diphenhydramine, metoprolol, Eliquis, docusate sodium, cholecalciferol, furosemide, nitroglycerin, lactobacillus, aspirin, potassium chloride, and lansoprazole. SOCIAL HISTORY: The patient denies tobacco, alcohol or IV illicit drug use. He is retired, retired years ago, accompanied by his , present in room today. IMAGING: No new imaging available. PQRS: The patient has known arthritic changes of the cervical spine, lumbar spine, bilateral hips and knees. No rheumatoid arthritis. He is placing current pain score 7-9/10. He is not a fall risk, has not had a fall in last 3 months. He is on blood thinners in the form of Eliquis. He is treated for hypertension. He is on chronic opioids, has a low opioid addiction potential based on assessment tool. Pain impact is 37/70, moderate interference of daily activities secondary to pain. [address] [address] PAIN MANAGEMENT CONSULTATION Name: ELÍAS DAVIS Room #: REG [facility] Oc.#: [id number] Admission: 06/03/21 Attend Phys: Elías Cruz DO Discharge: Date of : 40 Report #: [id number] PHYSICAL EXAMINATION: VITAL SIGNS: Blood pressure 107/67, pulse 65, respiratory rate 14 and unlabored. The patient is 97% on room air, height 6 feet 3 inches tall, weight 246.8 pounds, BMI calculated 30.8. GENERAL: Well-developed, well-nourished, well-hydrated 80-year-old male appearing stated age. He is placing current pain score anywhere from 7-9/10. HEENT: Normocephalic, atraumatic. Pupils equal, round and responsive. He is wearing a mask in compliance with COVID-19 regulations in hospital policy. EXTREMITIES: Show no clubbing, no cyanosis, no edema. MUSCULOSKELETAL: The patient is able to perform extension, rotation, lateral flexion of the lumbar spine. The pain is generated with these maneuvers. Seated straight leg raising negative. Supine straight leg raising negative. Fabere's test is negative. Well-healed surgical scars over his lumbar region from previous surgeries. He does have palpatory tenderness over the bilateral shoulders. Active and passive range of motion of the shoulders is mildly limited. Pain is generated with all maneuvers. ASSESSMENT: 1. Lumbosacral spondylosis without radiculopathy. 2. Facet arthropathy of lumbar spine. 3. Lumbar degeneration. 4. Bilateral shoulder pain. 5. Bilateral shoulder osteoarthritis. 6. Chronic intractable pain. 7. Complicated medication management utilizing scheduled medications. PLAN: 1. The patient returns today in followup visit to obtain refills of his medications in the form of fentanyl and hydrocodone. He states his medications are working beneficially despite the elevated pain level provided today of 7/10 in the daytime hours and up to 9/10 in the nighttime. He states that without the medication, he would not be able to participate in daily activities. He returns requesting refill on medications, but does note increased constipation over the past couple of weeks. He has had no changes in the medications, but states his constipation has become more problematic. 2. We reviewed the fact that opiate medications are being used to provide analgesia adequate to support activities of daily living, not attempting to achieve a specific pain score on the 0-10 Visual Analog Scale. The current opiate medications are providing sufficient analgesia to allow the patient to participate in activities of daily living. The patient is not exhibiting any aberrant behavior suggestive of drug diversion. The patient is not having any adverse reactions to medications. The patient is not suffering from daytime somnolence or mental acuity changes. The patient is managing opiate-induced constipation with appropriate lzzi-dge-xhjaqxc agents and dietary considerations. The patient was counseled on concern for caution with operating a motor vehicle while using opiate medications. [facility] [address] [place] [address] PAIN MANAGEMENT CONSULTATION Name: ELÍAS DAVIS Room #: REG [facility] Oc.#: [id number] Admission: 06/03/21 Attend Phys: Elías Cruz DO Discharge: Date of : 40 Report #: [id number] A physical exam was performed and the patient's functional status was evaluated. All patients with back pain were advised against the bed rest greater than 4 days and were advised to return to normal activities. Pain score assessment was noted and the treatment plan was reviewed with the patient. All current medications, both prescribed and OTC were reviewed and reconciled on the electronic medical record. Tobacco screening was accomplished and smoking cessation was advised when indicated. BMI was noted and diet/exercise modification was recommended for all patients following outside normal parameters. I reviewed with the patient today their responsibilities to safeguard prescription medications, reviewed their responsibility to utilize medications only as prescribed by the physician. They are to seek and receive pain medications only from 1 physician group ( pain associates). They are to use 1 pharmacy and keep the clinic informed if they change pharmacies. Their responsibilities include making followup visits in a timely fashion and to avoid abrupt discontinuation of medication usage. Their responsibilities further include bringing their medications (bottles from the pharmacy with residual pills) to the visit for possible confirmation of pill counts and the patient understands it is their responsibility to submit to random drug screens to ensure both that the medications prescribed are present, and that no other controlled substances are present. All prescriptions provided today were generated electronically. 3. The patient was provided refill prescription of fentanyl 12 mcg patch, 1 patch q.72 hours. I have given the patient #10 patches to release today, 4 weeks from today, 8 weeks from today, 3 months' worth of medication. All prescriptions sent via e-scribe to local pharmacy. 4. The patient and I discussed the continuation of the hydrocodone he has been taking. We recommend he utilizes as infrequently as possible as I do feel that this is contributing to his constipation issues. If he is able to reduce the dose of the medication to a less frequent dosing, this might improve his constipation. We did provide the patient with #60 of the hydrocodone 5/325 mg set to take on a p.r.n. basis. I have given him releases of today, 4 weeks from today, 8 weeks from today, 3 months' worth of medication. 5. In regards to the patient's constipation we will provide him with lactulose. He can take 10 grams daily as necessary. We would not recommend a daily dose of this medication, it could be used if he does not have a bowel movement in a 48-hour period. I have given him a month worth of medication with refills. 6. The patient has bilateral shoulder pain appears to be related to osteoarthritis. He states pain is most intense while he is trying to lie on his shoulders at night. I have advised the patient to trial a topical agent such as Salonpas or Voltaren applied topically to the area. He cannot take nonsteroidal anti-inflammatories due to his concomitant use of Eliquis. We did discuss the possibility of intra-articular shoulder injections as a possible treatment course. He have to come off the Eliquis for 3 days in preparation for that type [facility] [address] [place] [address] PAIN MANAGEMENT CONSULTATION Name: ELÍAS DAVIS Room #: REG [facility] OcDavid#: [id number] Admission: 06/03/21 Attend Phys: Elías Cruz DO Discharge: Date of : 40 Report #: [id number] of procedure. He is going to try the zxsz-ycm-jeknhrz medications initially. If symptoms do not improve, he might consider intraarticular shoulder injections. If he does so, he will need to stop the Eliquis in preparation for that procedure. 7. We will see the patient back in followup visit in 3 months for medication management. He can return earlier if he wishes to undergo bilateral intraarticular shoulder injections under fluoroscopic guidance. <ELECTRONICALLY SIGNED> By: Elías Cruz DO 06/04/21 [id number] Elías Cruz DO /nt
== END ==
LOC: PAIN 06:58
PROVIDERS: ATTEND Anesthesiology Pain Medicine
DX: M47.816 Spondylosis without myelopathy or radiculopathy, lumbar region (principal); M47.817 Spondylosis without myelopathy or radiculopathy, lumbosacral region; M19.011 Primary osteoarthritis, right shoulder; M19.012 Primary osteoarthritis, left shoulder; M79.661 Pain in right lower leg; M79.662 Pain in left lower leg; G89.29 Other chronic pain; Z88.0 Allergy status to penicillin

== ENCOUNTER → 2021-09-02 | Outpatient (CLI) | payer OTHER, MEDICARE ==
[~2021-09-02] VITALS: Ht 190.5 cm; Wt 114.5 kg
[~2021-09-02] MED LIST changes: +DULOXETINE HCL30 MG PO
[2021-09-02 09:27] VITALS: BP 114/71
--- NOTE | 2021-09-02 09:36 | NUR ---
Pain Clinic Assessment: 1. History of Osteoarthritis: SPINE HIPS KNEES History of Rheumatoid Arthritis: Not Applicable 2. Height: 6 ft. 3 in. 190.5 cm. Weight: 252.4 lb. oz. 114.488 kg. Patient's BMI: 31.5 3. Vital Signs: BP: 114/71 Pulse: 72 Resp: 16 Temp: 02 Sat: 95 ECG Mon: 4. Pain Intensity: 7 5. Fall Risk: Dizziness: N Needs help standing or walking: Y Fallen in the last 3 months: N Fall risk comments: 6. Patient on Blood Thinner: ELIQUIS 7. History of Hypertension: Y 8. Opioid Therapy greater than 6 weeks: Y Opiate Contract Signed: 03/25/16 9. Risk Assessment Tool Provided: LOW RISK 1 10. Functional Assessment Tool: 11. Recreational Drug Use: Never Drug Type: Tobacco Use: Never Smoker Tobacco Type: Amount or Packs/day: How Many Years: Alcohol Use: Past use Frequency: Quant:
== END ==
LOC: PAIN 08:07
PROVIDERS: ATTEND Clinical Nurse Specialist Adult Health
DX: M47.816 Spondylosis without myelopathy or radiculopathy, lumbar region (principal); M51.26 Other intervertebral disc displacement, lumbar region; M19.011 Primary osteoarthritis, right shoulder; M19.012 Primary osteoarthritis, left shoulder; G89.29 Other chronic pain; Z88.8 Allergy status to other drugs, medicaments and biological substances; Z88.0 Allergy status to penicillin; Z79.82 Long term (current) use of aspirin; Z79.899 Other long term (current) drug therapy